=== PATIENT | male | born 1975 | race Caucasian/White ===

== ENCOUNTER 2016-07-01 13:46 | Emergency (ER) | payer MEDICAID ==
[2015-07-16 16:09] VITALS: BMI 25.1
[~2016-07-01 13:46] MED LIST: CELEXA40 MG PO; DIOVAN40 MG PO; HYDROCODONE-APA1 TAB PO; PERCOCET 10/3251 TA1 PO; REMERON30 MG PO; SYNTHROID50 MCG PO; TESSALON PERLE100 MG PO; VITAMIN D5000 UNIT PO
== END 2016-07-01 15:55 | disposition home or self-care (01) ==
LOC: D.ER 13:46
DX: M54.5 Low back pain (principal); E03.9 Hypothyroidism, unspecified; E78.5 Hyperlipidemia, unspecified; F32.9 Major depressive disorder, single episode, unspecified

== ENCOUNTER 2016-07-31 12:24 | Emergency (ER) | payer MEDICAID ==
[2015-07-16 16:09] VITALS: BMI 25.1
[2016-07-31 13:07] LABS: APPEARANCE CLEAR (CLEAR); BILIRUBIN NEGATIVE (NEGATIVE); COLOR YELLOW (YELLOW); GLUCOSE NEGATIVE (NEGATIVE); KETONE NEGATIVE (NEGATIVE); LEUKOCYTE ESTERASE NEGATIVE (NEGATIVE); NITRITE NEGATIVE (NEGATIVE); PROTEIN NEGATIVE (NEGATIVE); UROBILINOGEN NORMAL (NORMAL)
== END 2016-07-31 14:41 | disposition home or self-care (01) ==
LOC: D.ER 12:24
PROVIDERS: Emergency Medicine
DX: M54.16 Radiculopathy, lumbar region (principal); M51.36 Other intervertebral disc degeneration, lumbar region; E78.5 Hyperlipidemia, unspecified; I10 Essential (primary) hypertension; E03.9 Hypothyroidism, unspecified; F17.200 Nicotine dependence, unspecified, uncomplicated

== ENCOUNTER 2016-10-10 16:18 | Inpatient (IN) | payer SELFPAY ==
[2016-10-10] VITALS (17 sets, daily range): BP systolic 81–113; BP diastolic 47–94; BMI 21.1; BMI 25.2
[~2016-10-10] VITALS: Ht 185.4 cm; Wt 88.2 kg
[2016-10-10 17:22] LABS: BASOPHILS 0.3 % (0-2); EOSINOPHILS 2.1 % (0-7); HEMATOCRIT 42.3 % (42.0-54.0); HEMOGLOBIN 14.3 g/dL (13.5-17.5); IMMATURE GRANULOCYTES 0.1 % (0-5); MCH 29.5 pg (26.0-34.0); MCHC 33.8 g/dL (31.0-37.0); MCV 87.4 fL (80.0-100.0); MEAN PLATELET VOLUME 9.9 fL (7.4-10.4); MONOCYTES 9.3 % (2-11); NEUTROPHILS 46.2 % (40-80); PLATELET COUNT 257 10x3/uL (130-400); RBC 4.84 10x6/uL (4.20-6.10); RDW 14.4 % (11.5-14.5); WBC 6.8 10x3/uL (4.8-10.8)
[2016-10-10 17:30] LABS: UDS - AMPHET POSITIVE QUAL (NEGATIVE); UDS - BARB NEGATIVE QUAL (NEGATIVE); UDS - BENZO NEGATIVE QUAL (NEGATIVE); UDS - COCAINE NEGATIVE QUAL (NEGATIVE); UDS - METH NEGATIVE QUAL (NEGATIVE); UDS - OPIATE POSITIVE QUAL (NEGATIVE); UDS - PCP NEGATIVE QUAL (NEGATIVE); UDS - THC NEGATIVE QUAL (NEGATIVE)
[2016-10-10 17:39] LABS: ALBUMIN 3.7 g/dL (3.4-5.0); ANION GAP 19.8 mmol/L (8-16); BILIRUBIN - TOTAL 1.22 mg/dL (0.2-1.3); CALCIUM 7.8 mg/dL (8.5-10.1); CARBON DIOXIDE 19.3 mmol/L (21.0-32.0); CREATININE - SERUM 1.5 mg/dL (0.6-1.3); POTASSIUM - SERUM 4.1 mmol/L (3.5-5.1); PROTEIN - SERUM 6.6 g/dL (6.4-8.2)
[2016-10-10 18:00] LABS: ACETAMINOPHEN 730.3 ug/mL (10.0-30.0)
[2016-10-10 19:01] LABS: INR 1.05 (0.85-1.17); PROTIME 13.5 SECONDS (11.6-15.0)
--- NOTE | 2016-10-10 20:00 | NUR ---
RECIEVED FROM THE ED VIA STRETCHER. PLACED ON MONITORS. 8.0 ETT TAPED AT LIP LINE AT 25CM, VENT SETTINGS PER FLOW SHEET. OGT WITH CHARCOAL IN TUBING. MUIR CATH INTACT WITH WALLACE COLORED URINE IN BAG. PPP. SB ON THE MONITOR. DR. BUSTILLO NOTIFIED OF ARRIVAL. NEW ORDERS RECIEVED. WILL CONT TO MONITOR.
--- NOTE | 2016-10-10 20:30 | NUR ---
TEMP 91.2 RECTALLY. MUIR CATH REMOVED AND CRITICORE ATTEMPTED.
--- NOTE | 2016-10-10 20:40 | NUR ---
PT HAVING SEIZURE. ATIVAN 2MG IV GIVEN PER ORDERS. BOYFRIEND AT BEDSIDE. UPDATE GIVEN.
--- NOTE | 2016-10-10 20:57 | NUR ---
SPOKE WITH DR CANALES REGARDING NEED FOR MUIR CATH, UNABLE TO REPLACE MUIR WITH CRITICORE.
--- NOTE | 2016-10-10 21:30 | NUR ---
DR CANALES HERE, UNSUCCESSFUL WITH MUIR PLACEMENT. OR TEAM CALLED VIA [place] TECHNICIAN PER DR CANALES.
--- NOTE | 2016-10-10 22:10 | NUR ---
OR TEAM HERE. CYSTOSCOPY AT BEDSIDE COMPLETED AND CRITICORE PLACED. TEMP 92.7 PER CRITICORE.
--- NOTE | 2016-10-10 22:17 | NUR ---
DR BUSTILLO NOTIFIED OF PT HAVING SEIZURE. NEW ORDERS RECIEVED.
--- NOTE | 2016-10-10 22:26 | NUR ---
DR VENEGAS NOTIFIED OF CONSULT AND SEIZURES. NEW ORDERS RECIEVED.
[2016-10-10 22:48] LABS: ALBUMIN 3.5 g/dL (3.4-5.0); BILIRUBIN - TOTAL 1.19 mg/dL (0.2-1.3); CALCIUM 7.6 mg/dL (8.5-10.1); CARBON DIOXIDE 16.5 mmol/L (21.0-32.0); CREATININE - SERUM 1.6 mg/dL (0.6-1.3); POTASSIUM - SERUM 4.5 mmol/L (3.5-5.1); PROTEIN - SERUM 6.9 g/dL (6.4-8.2)
[2016-10-10 23:04] LABS: BILIRUBIN - DIRECT 0.24 mg/dL (0.00-0.30); MAGNESIUM - SERUM 2.1 mg/dL (1.8-2.4); PHOSPHOROUS 2.9 mg/dL (2.5-4.9)
[2016-10-11] VITALS (91 sets, daily range): BP systolic 91–128; BP diastolic 51–90; Ht 185.4 cm; Wt 88.2 kg
[2016-10-11 00:16] LABS: APPEARANCE HAZY (CLEAR); BILIRUBIN NEGATIVE (NEGATIVE); COLOR DK YELLOW (YELLOW); GLUCOSE NEGATIVE (NEGATIVE); KETONE NEGATIVE (NEGATIVE); LEUKOCYTE ESTERASE NEGATIVE (NEGATIVE); NITRITE NEGATIVE (NEGATIVE); PROTEIN TRACE mg/dL (NEGATIVE); UROBILINOGEN NORMAL (NORMAL)
[2016-10-11 00:26] LABS: AMORPHOUS SEDIMENT >1+ /lpf (NONE SEEN); BACTERIA MODERATE /hpf (NONE SEEN); EPITHELIAL CELLS 0-5 /hpf (0-5); GRANULAR CAST RARE /lpf (NONE SEEN); HYALINE CAST OCC /lpf (NONE SEEN); MUCUS <1+ /lpf (NONE SEEN); RED CELLS - URINE 0-5 /hpf (0-5); WHITE CELLS - URINE 0-5 /hpf (0-5)
--- NOTE | 2016-10-11 01:10 | NUR ---
DR VENEGAS NOTIFIED OF LAB PER ORDERS. NEW ORDERS RECIEVED. WILL CONT TO MONITOR.
[2016-10-11 04:31] LABS: BASOPHILS 0.1 % (0-2); EOSINOPHILS 0 % (0-7); HEMATOCRIT 42.5 % (42.0-54.0); HEMOGLOBIN 14.6 g/dL (13.5-17.5); IMMATURE GRANULOCYTES 0.3 % (0-5); MCH 29.5 pg (26.0-34.0); MCHC 34.4 g/dL (31.0-37.0); MCV 85.9 fL (80.0-100.0); MEAN PLATELET VOLUME 9.9 fL (7.4-10.4); MONOCYTES 10.1 % (2-11); NEUTROPHILS 65.5 % (40-80); PLATELET COUNT 299 10x3/uL (130-400); RBC 4.95 10x6/uL (4.20-6.10); RDW 14.1 % (11.5-14.5)
[2016-10-11 05:01] LABS: ALBUMIN 2.8 g/dL (3.4-5.0); BILIRUBIN - TOTAL 1.12 mg/dL (0.2-1.3); CARBON DIOXIDE 15.4 mmol/L (21.0-32.0); CREATININE - SERUM 1.4 mg/dL (0.6-1.3); PHENOBARBITAL 21.6 ug/mL (15.0-40.0); PROTEIN - SERUM 5.7 g/dL (6.4-8.2)
[2016-10-11 05:06] LABS: ANION GAP 22.8 mmol/L (8-16); PHOSPHOROUS 4.4 mg/dL (2.5-4.9); POTASSIUM - SERUM 3.2 mmol/L (3.5-5.1)
[2016-10-11 05:07] LABS: ACETAMINOPHEN 352.1 ug/mL (10.0-30.0); CALCIUM 6.6 mg/dL (8.5-10.1)
--- NOTE | 2016-10-11 08:03 | NUR ---
PT WAS INTUBATED AND IN ICU. CORE BODY TEMP NEEDED TO BE MONITORED PER CRITICORE CATHETER. PT HAD NO FAMILY IN ATTENDENCE AND WAS SEDATED. DR. CANALES DECLARED IT AN EMERGENCY WITHOUT A PERMIT AND A CYSTOSCOPY WAS PERFORMED IN ORDER TO PLACE THE CATHETER. ANESTHESIA, CAMERON LAM WAS IN ATTENDENCE BUT NO ANESTHETIC CARE WAS GIVEN.
--- NOTE | 2016-10-11 12:36 | OP ---
PATIENT NAME: MERON MARTIN MEDICAL RECORD: [id number] :71 LOCATION:[facility] D.2311 ADMISSION DATE:10/10/16 SURGEON: MARIA E CANALES MD DATE OF OPERATION: 10/10/2016 PREOPERATIVE DIAGNOSES: Drug overdose with amphetamines, acetaminophen and opioids; inability to be catheterized. FINDINGS: Urethral mucosal flaps. PROCEDURES: Cystoscopy, insertion of a Pinto catheter over a guidewire. SPECIMENS: None. COMPLICATIONS: None. ESTIMATED BLOOD LOSS: None. CLINICAL HISTORY: This is a 40-year-old male, who came to the Emergency Room and was found to have an overdose of acetaminophen, amphetamines and opioids by drug testing. He is now intubated and ventilated in the intensive care unit. He is hypothermic and bradycardic with a heart rate of around 30. He is on Levophed pressors. He is having witnessed seizures. In the Emergency Room, a Pinto catheter was placed; however, because of his hypothermia, the ICU staff need a catheter to be inserted with temperature sensing. They removed the Pinto catheter that was placed in the Emergency Room and they are unable to get another same-sized catheter, 16-Central African, into the patient. Therefore, they called urology assistance. I came in and I tried to get past the urethral obstruction with filiforms. I was unable to get past. Therefore, the OR staff were called in for cystoscopy and placement of a catheter over a guidewire. Because of his intubated and ventilated state as well as being on pressors, we decided to do this at the patient's bedside. The equipment was brought from the cystoscopy suite and the procedure was done in the ICU. The patient is unconscious, so no further anesthetics were given to the patient. DESCRIPTION OF PROCEDURE: The patient was prepped and draped. A flexible cystoscope was used. Going into the urethra, we noticed that there was a mucosal flap from the prior catheterization being traumatic. There is no urethral stricture. Prostate is nonobstructive. Going into the bladder, he has single ureteral orifices. No bladder tumors were seen. A Sensor wire was placed into the bladder through the cystoscope. The cystoscope was then removed and the Sensor wire was left in place. Over the wire, we inserted the temperature-sensing Pinto catheter after converting it into a Councill tip catheter. Once the catheter was in the bladder as evidenced by the catheter reaching the hub at the tip of the penis and also by urinary drainage, the wire was entirely removed. The balloon was inflated with 10 cc of sterile water and then the catheter was put to bag drainage. TRANSINT:[id number] Voice Confirmation ID: [id number] DOCUMENT ID: [id number] OPERATIVE REPORT [id number] MERON MARTIN, MARIA E Eng MD at 1236 CC: [id number] DICTATION DATE: 10/10/162303 OCCUPATIONAL THERAPY PROGRAM DIRECTOR: 10/10/16 2348 ADM IN [facility] [address] [id number]
--- NOTE | 2016-10-11 14:10 | NUR ---
DR. ADAMS PLACED DOUBLE LUMEN CVL TO LEFT SUBCLAVIALN, NO NOTED BLOOD LOSS, CHEST X-RAY ORDERED POST PROCEDURE.
[2016-10-11 17:03] LABS: HEMATOCRIT 43.4 % (42.0-54.0); HEMOGLOBIN 14.9 g/dL (13.5-17.5)
--- NOTE | 2016-10-11 18:03 | NUR ---
MUCOMYST PROTOCOL IV COMPLETED. KCL 2.9 SEE EMAR FOR KCL INFUSION PER PROTOCOL
--- NOTE | 2016-10-11 19:10 | NUR ---
ASSESSMENT COMPLETED. SEE FLOW SHEET. 8.0 ETT TAPED AT LIP LINE @ 25CM, VENT SETTINGS PER FLOW SHEET. LT DLSC, DRSG C-D-I WITH NS @ 75CC/HR VIA PUMP, LEVOPHED @ 25MCG/KG/MIN VIA PUMP, TITRATING FOR BP, DIPRIVAN @ 17MCG/KG/MIN VIA PUMP AND KCL RIDER AT 50CC/HR VIA PUMP. RT UPPER ARM PIV, SITE WITHOUT REDNESS OR EDEMA WITH 1/2NS WITH 1 AMP NaHCO3 @ 75CC/HR VIA PUMP. CRITICORE MUIR INTACT WITH DARK COLORED URINE IN BAG. MAGAN SCD'S INTACT. ON AIR OVERLAY. SR ON THE MONITOR.
--- NOTE | 2016-10-11 21:00 | NUR ---
DIPRIVAN ON HOLD AT THIS TIME FOR NEURO CHECK. CALLED POISON CONTROL FOR UPDATE.
--- NOTE | 2016-10-11 21:05 | NUR ---
PT SITTING UP IN BED. DIPRIVAN RESUMED. WILL CONT TO MONITOR.
--- NOTE | 2016-10-11 21:25 | NUR ---
TYRELL CALLED. UPDATE GIVEN.
[2016-10-11 21:26] LABS: APTT 29.5 SECONDS (22.8-39.4)
[2016-10-11 21:29] LABS: INR 1.34 (0.85-1.17); PROTIME 16.4 SECONDS (11.6-15.0)
--- NOTE | 2016-10-11 21:30 | NUR ---
POISON CONTROL CALLED, UPDATE GIVEN. NEW RECOMENDATIONS GIVEN. CONTACTED DR POLK. NEW ORDERS RECIEVED. PHARMACY NOTIFIED OF NEED FOR MUCOMYST IV. Y
[2016-10-11 21:40] LABS: ALBUMIN 2.7 g/dL (3.4-5.0); BILIRUBIN - DIRECT 0.57 mg/dL (0.00-0.30); BILIRUBIN - INDIRECT 0.62 mg/dL (0.00-1.00); BILIRUBIN - TOTAL 1.19 mg/dL (0.2-1.3); PROTEIN - SERUM 5.4 g/dL (6.4-8.2)
[2016-10-11 21:42] LABS: ACETAMINOPHEN 82.5 ug/mL (10.0-30.0)
--- NOTE | 2016-10-11 23:00 | NUR ---
NO CHANGES AT THIS TIME. CONTINUE TO WEAN LEVOPHED PER BP
[2016-10-12] VITALS (43 sets, daily range): BP systolic 86–115; BP diastolic 57–633
--- NOTE | 2016-10-12 01:00 | NUR ---
SR ON THE MONITOR.
--- NOTE | 2016-10-12 03:00 | NUR ---
REASSESSMNET COMPLETED.
--- NOTE | 2016-10-12 03:45 | NUR ---
RADIOLOGY HERE FOR CXR. TOLLERATED WELL.
[2016-10-12 04:27] LABS: BASOPHILS 0.2 % (0-2); EOSINOPHILS 0.4 % (0-7); HEMATOCRIT 40.3 % (42.0-54.0); HEMOGLOBIN 13.8 g/dL (13.5-17.5); IMMATURE GRANULOCYTES 0.2 % (0-5); LYMPHOCYTES 17.6 % (15-50); MCH 29.2 pg (26.0-34.0); MCHC 34.2 g/dL (31.0-37.0); MCV 85.4 fL (80.0-100.0); MEAN PLATELET VOLUME 10.1 fL (7.4-10.4); MONOCYTES 2.4 % (2-11); NEUTROPHILS 79.2 % (40-80); RBC 4.72 10x6/uL (4.20-6.10); RDW 14.2 % (11.5-14.5); WBC 8.2 10x3/uL (4.8-10.8)
[2016-10-12 04:33] LABS: INR 1.51 (0.85-1.17); PLATELET COUNT 195 10x3/uL (130-400)
[2016-10-12 04:37] LABS: ALBUMIN 2.5 g/dL (3.4-5.0); ALKALINE PHOSPHATASE 42 U/L (46-116); ALT (SGPT) 204 U/L (10-68); CALC OSMOLALITY 284 mosm/kg (275-300); CHLORIDE - SERUM 107 mmol/L (98-107); CREATININE - SERUM 0.7 mg/dL (0.6-1.3); GLUCOSE 125 mg/dL (74-106); MAGNESIUM - SERUM 2.1 mg/dL (1.8-2.4); PHOSPHOROUS 2.2 mg/dL (2.5-4.9); PROTEIN - SERUM 5.1 g/dL (6.4-8.2); SODIUM 142 mmol/L (136-145); UREA NITROGEN 15 mg/dL (7-18); eGFR NON AFRICAN AMERICAN > 90 mL/min (90-120)
[2016-10-12 04:38] LABS: CARBON DIOXIDE 26.6 mmol/L (21.0-32.0); POTASSIUM - SERUM 2.5 mmol/L (3.5-5.1); TROPONIN-I < 0.017 ng/mL (0.000-0.060)
--- NOTE | 2016-10-12 05:00 | NUR ---
DIPRIVAN HELD FOR 2 MIN THEN RESTARTED AFTER PT COUGHING AND SITTING UP IN BED.
--- NOTE | 2016-10-12 07:00 | NUR ---
PT REPORT REC'D, PT CARE ASSUMED. PT SEDATED ON VENT, VSS, NO SIGNS OF DISTRESS. OGT TO LIWS. LEFT SUBCLAVIAN CVL WITH FLUIDS INFUSING, SEE FLOW SHEET. MUIR CATHETER FREE OF KINKS TO GRAVITY WITH DARK URINE RETURN. SCD'S. SHIFT ASSESSMENT COMPLETED, SEE FLOW SHEET. ROOM FREE OF CLUTTER, CALL LIGHT IN REACH, ROOM CLOSE TO NURSES STATION, WILL CONTINUE TO MONITOR PT.
--- NOTE | 2016-10-12 07:23 | OP ---
PATIENT NAME: MERON MARTIN MEDICAL RECORD: [id number] :71 LOCATION:[facility] D.2311 ADMISSION DATE:10/10/16 SURGEON: DAYNA ADAMS MD DATE OF OPERATION: 10/11/2016 SURGEON: Dayna Adams MD. PREOPERATIVE DIAGNOSIS: Intentional drug overdose. POSTOPERATIVE DIAGNOSIS: Intentional drug overdose. PROCEDURE PERFORMED: Insertion of left subclavian CVL. ANESTHESIA: Local. COMPLICATIONS: None. SPECIMENS: None. Case was clean. ESTIMATED BLOOD LOSS: 5 cc. PROCEDURE IN DETAIL: After consent was obtained, the patient was placed in supine position in the ICU bed. A shoulder roll was placed. A timeout was taken to confirm the correct patient and procedure. Left chest and neck were prepped and draped in typical sterile fashion. Left subclavian vein was then cannulated on the first pass. A guidewire was placed. The needle was removed. Wire was placed. A stab incision was made with 11-blade scalpel. The dilators passed in the wire in a standard Seldinger fashion. The catheter was then passed through the wire in a standard Seldinger fashion. The wire was removed. The catheter was secured to the skin with a 2-0 silk suture as well as a Biopatch and sterile Tegaderm dressing. Both ports were aspirated and flushed. At the end of the procedure, all needle and instrument counts were correct. No complications occurred. The patient tolerated the procedure well. Immediate postoperative chest x-ray was performed to confirm the line placement. TRANSINT:[id number] Voice Confirmation ID: [id number] DOCUMENT ID: [id number] DAYNA ADAMS MD at 0723 CC: [id number] DICTATION DATE: 10/11/16 1510 SANDING MACHINE BUFFER: 10/12/16 0109 ADM IN [id number] [place] [id number]
--- NOTE | 2016-10-12 11:00 | NUR ---
PT SEDATED, REPOSITIONED, PROPPED PT WITH PILLOWS, VSS, REASSESSMENT COMPLETED, SEE FLOW SHEET. ROOM FREE OF CLUTTER, CALL LIGHT IN REACH, WILL CONTINUE TO MONITOR PT.
--- NOTE | 2016-10-12 12:40 | NUR ---
REC'D REPORT AND RESUMED CARE, CONTINUES ON VENT WITH SEDATION IN USE, VSS, WILL CONTINUE POC
--- NOTE | 2016-10-12 14:10 | NUR ---
REPEAT K+ AND AETAMINIPHINE LEVEL DRAWN FROM LINE AND SENT TO LAB
[2016-10-12 14:42] LABS: ACETAMINOPHEN 22.3 ug/mL (10.0-30.0)
[2016-10-12 14:52] LABS: POTASSIUM - SERUM 3.1 mmol/L (3.5-5.1)
--- NOTE | 2016-10-12 15:00 | NUR ---
NO ACUTE CHANGE FROM PREVIOUS ASSESSMENT VSS, ORAL CARE AND SUCTION COMPLETED, REPOSITIONED TO BACK
--- NOTE | 2016-10-12 18:10 | NUR ---
KCL 20 MEQ RIDER 2ND DOSE INTIIATED, NO VISITORES AT THIS TIME
--- NOTE | 2016-10-12 19:10 | NUR ---
REPORT RECIEVED, SHIFT ASSESSMENT COMPLETE, PT IS SEDATED ON VENT, S1S2, CM-NSR, PATENT OGT WITH DARK BROWN DRAINAGE, PLACEMENT CHECKED WITH SM AIR BOLUS, PATENT LEFT SC CVL...SEE FLOW SHEET...ABDOMEN IS SOFT AND ROUND WITH ACTIVE BS, PATENT F/C WITH DARK UOP, EDEMA NOTED IN ALL EXTREMETIES, LUNGS CLEAR IN B/L UPPER LOBES, DIMINISHED IN B/L LOWER LBOES, ALL PPP, VSS, WILL CON'T TO MONITOR
--- NOTE | 2016-10-12 21:00 | NUR ---
COMPLETE BATH AND LINEN CHANGE, REPOSITIONED FOR COMFORT, ORAL CARE PROVIDED,
--- NOTE | 2016-10-12 23:00 | NUR ---
REASSESSMENT COMPLETE, NO CHANGES NOTED, PT REPOSITIONED FOR COMFORT, ORAL CARE PROVIDED,
[2016-10-13] VITALS (24 sets, daily range): BP systolic 107–127; BP diastolic 60–74
--- NOTE | 2016-10-13 01:00 | NUR ---
REPOSITIONED FOR COMFORT, ORAL CARE PROVIDED,
--- NOTE | 2016-10-13 03:00 | NUR ---
REASSESSMENT COMPLETE, NO CHANGES NOTED, PT RESTING AT THIS TIME, REPOSITIONED FOR COMFORT, ORAL CARE PROVIDED,
[2016-10-13 04:03] LABS: BASOPHILS 0.1 % (0-2); EOSINOPHILS 0.1 % (0-7); HEMATOCRIT 36.5 % (42.0-54.0); HEMOGLOBIN 12.5 g/dL (13.5-17.5); IMMATURE GRANULOCYTES 0.2 % (0-5); MCH 29.5 pg (26.0-34.0); MCHC 34.2 g/dL (31.0-37.0); MCV 86.1 fL (80.0-100.0); MEAN PLATELET VOLUME 10.3 fL (7.4-10.4); NEUTROPHILS 87.6 % (40-80); PLATELET COUNT 138 10x3/uL (130-400); RBC 4.24 10x6/uL (4.20-6.10); RDW 14.6 % (11.5-14.5); WBC 10.3 10x3/uL (4.8-10.8)
[2016-10-13 04:30] LABS: ALBUMIN 2.4 g/dL (3.4-5.0); ALKALINE PHOSPHATASE 40 U/L (46-116); BILIRUBIN - TOTAL 1.14 mg/dL (0.2-1.3); CALCIUM 7.1 mg/dL (8.5-10.1); CARBON DIOXIDE 27.5 mmol/L (21.0-32.0); CHLORIDE - SERUM 106 mmol/L (98-107); CREATININE - SERUM 0.7 mg/dL (0.6-1.3); GLUCOSE 123 mg/dL (74-106); MAGNESIUM - SERUM 1.8 mg/dL (1.8-2.4); PHENOBARBITAL 27.7 ug/mL (15.0-40.0); POTASSIUM - SERUM 3.2 mmol/L (3.5-5.1); PROTEIN - SERUM 4.7 g/dL (6.4-8.2); SODIUM 142 mmol/L (136-145); eGFR NON AFRICAN AMERICAN > 90 mL/min (90-120)
[2016-10-13 04:42] LABS: ALT (SGPT) 6856 U/L (10-68); CALC OSMOLALITY 280 mosm/kg (275-300); PHOSPHOROUS 1.5 mg/dL (2.5-4.9); UREA NITROGEN 5 mg/dL (7-18)
--- NOTE | 2016-10-13 11:06 | NUR ---
NUTRITION MONITORING & EVAL CHART REVIEWED, PT REMAINS ON VENT, SEDATED. NO CURRENT NUTRITION SUPPORT. NURSING REPORTS UGI BLEED. RD FOLLOWING
--- NOTE | 2016-10-13 12:15 | NUR ---
CM REASSESSMENT NOTE: CM CALLED [facility] REGARDING TRANSFER OF PATIENT PER DR. WHITE REQUEST. CM SPOKE WITH JAKI AND PROVIDED THE NEEDED INFORMATION. MD WILL CALL DR. WHITE BACK FOR MORE INFORMATION. PHONE NUMBER FOR DR. WHITE PROVIDED.
--- NOTE | 2016-10-13 12:53 | NUR ---
CM REASSESSMENT NOTE: CM REC CALL FROM [facility] STATING THEY COULD NOT GET AN ANSWER FROM DR. WHITE AND WILL TRY AGAIN BUT TO NOTIFY HIM OF THE CALL. CM WILL CONTINUE TO FOLLOW PATIENT WITH D/C NEEDS AND PLANS.
--- NOTE | 2016-10-13 15:00 | NUR ---
WEDDING RING AND BLUE RING GIVEN TO MALE .
[2016-10-13 16:09] LABS: INR 1.41 (0.85-1.17); PROTIME 17.1 SECONDS (11.6-15.0)
--- NOTE | 2016-10-13 19:15 | NUR ---
REPORT RECIEVED, SHIFT ASSESSMENT COMPLETE, PT IS SEDATED ON VENT, ON 30% FIO2 WITH 97% O2 SAT. CRACKLES HEARD IN B/L UPPER LOBES, DIMINISHED IN B/L LOWER LOBES, S1S2, CM-NSR, PATENT LEFT SC CVL...SEE FLOW SHEET..PATENT OGT WITH BROWN DRAINAGE NOTED, ABDOMEN IS SOFT AND ROUND WITH HYPO BS, PATENT F/C WITH DARK UOP, EDEMA NOTED IN ALL EXTREMETIES, ALL PPP, VSS, WILL CON'T TO MONITOR
--- NOTE | 2016-10-13 21:00 | NUR ---
NO VISITORS AT THIS TIME, WILL CON'T TO MONITOR
--- NOTE | 2016-10-13 22:10 | NUR ---
[facility]ANDA CONTROL CALLED. GIVEN UPDATE. NO NEW CHANGES.
--- NOTE | 2016-10-13 23:14 | NUR ---
REASSESSMENT COMPLETE PER FLOW SHEET. VSS. NO NEW CHANGES. WILL CONTINUE TO MONITOR.
[2016-10-14] VITALS (37 sets, daily range): BP systolic 101–132; BP diastolic 53–88
--- NOTE | 2016-10-14 01:10 | NUR ---
REPOSITIONED FOR COMFORT, ORAL CARE PROVIDED,
--- NOTE | 2016-10-14 03:00 | NUR ---
REASSESSMENT COMPLETE, NO CHANGES NOTED, PT RESTING AT THIS TIME, NO NEEDS NOTED, WILL CON'T TO MONITOR
[2016-10-14 04:05] LABS: BASOPHILS 0.2 % (0-2); EOSINOPHILS 1.3 % (0-7); HEMATOCRIT 33.1 % (42.0-54.0); IMMATURE GRANULOCYTES 0.1 % (0-5); MCH 29.1 pg (26.0-34.0); MCHC 33.2 g/dL (31.0-37.0); MCV 87.6 fL (80.0-100.0); MEAN PLATELET VOLUME 10.4 fL (7.4-10.4); MONOCYTES 2.8 % (2-11); NEUTROPHILS 85.6 % (40-80); PLATELET COUNT 134 10x3/uL (130-400); RBC 3.78 10x6/uL (4.20-6.10); RDW 14.4 % (11.5-14.5); WBC 9.6 10x3/uL (4.8-10.8)
[2016-10-14 04:29] LABS: INR 1.26 (0.85-1.17); PROTIME 15.7 SECONDS (11.6-15.0)
[2016-10-14 04:42] LABS: ACETAMINOPHEN 1.7 ug/mL (10.0-30.0); ALBUMIN 2.2 g/dL (3.4-5.0); ALKALINE PHOSPHATASE 40 U/L (46-116); BILIRUBIN - DIRECT 0.58 mg/dL (0.00-0.30); BILIRUBIN - TOTAL 1.53 mg/dL (0.2-1.3); CALC OSMOLALITY 281 mosm/kg (275-300); CALCIUM 7.7 mg/dL (8.5-10.1); CARBON DIOXIDE 24.4 mmol/L (21.0-32.0); CHLORIDE - SERUM 107 mmol/L (98-107); CREATININE - SERUM 0.7 mg/dL (0.6-1.3); GLUCOSE 126 mg/dL (74-106); POTASSIUM - SERUM 3.2 mmol/L (3.5-5.1); PROTEIN - SERUM 5.2 g/dL (6.4-8.2); SODIUM 142 mmol/L (136-145); UREA NITROGEN 4 mg/dL (7-18); eGFR NON AFRICAN AMERICAN > 90 mL/min (90-120)
--- NOTE | 2016-10-14 05:00 | NUR ---
REPOSITIONED FOR COMFORT, ORAL CARE PROVIDED
[2016-10-14 05:48] LABS: ALT (SGPT) 5175 U/L (10-68)
--- NOTE | 2016-10-14 10:27 | NUR ---
Nutrition follow-up/consult for tube feeding: Pt remains intubated; weaning trial today. Labs reviewed Recommend starting Suplena @ 25 ml/hr with gradual increase to goal rate of 55 ml/hr. 2376 kcal 60 g protein 975 ml free H2O RDN following.
--- NOTE | 2016-10-14 19:15 | NUR ---
REPORT RECIEVED, SHIFT ASSESSMENT COMPLETE, PT IS SEDATED ON VENT, ON 30% FIO2 WITH 97% O2 SAT. CRACKLES HEARD INB/L UPPER LOBES, DIMINISHED IN B/L LOWER LOBES, S1S2, CM-NSR, PATENT OGT WITH SUPPLENA INFUSING VIA PUMP, NO RESIDUAL NOTED, ABDOMEN IS DISTENDED WITH HYPO BS, PATENT LEFT SC CVL..SEE FLOW SHEET....PATENT F/C WITH CONCENTRATED UOP, EDEMA NOTED IN ALL EXTREMETIES, ALL PPP, VSS, WILL CON'T TO MONITOR
--- NOTE | 2016-10-14 21:15 | NUR ---
COMPLETE BATH AND LINEN CHANGE, NO VISITORS AT THIS TIME,
--- NOTE | 2016-10-14 23:03 | NUR ---
REASSESSMENT COMPLETE, NO CHANGES NOTED, PT REPOSITIONED FOR COMFORT, ORAL CARE PROVIDED,
[2016-10-15] VITALS (24 sets, daily range): BP systolic 91–166; BP diastolic 48–85
--- NOTE | 2016-10-15 01:00 | NUR ---
REPOSITIONED FOR COMFORT, ORAL CARE PROVIDED,
--- NOTE | 2016-10-15 03:04 | NUR ---
REASSESSMENT COMPLETE, NO CHANGES NOTED, PT REPOSITIONED FOR COMFORT, ORAL CARE PROVIDED,
[2016-10-15 03:34] LABS: BASOPHILS 0.5 % (0-2); EOSINOPHILS 3.2 % (0-7); HEMATOCRIT 30.2 % (42.0-54.0); HEMOGLOBIN 9.9 g/dL (13.5-17.5); IMMATURE GRANULOCYTES 0.2 % (0-5); LYMPHOCYTES 15.5 % (15-50); MCH 29.1 pg (26.0-34.0); MCHC 32.8 g/dL (31.0-37.0); MCV 88.8 fL (80.0-100.0); MEAN PLATELET VOLUME 10.4 fL (7.4-10.4); MONOCYTES 5.6 % (2-11); PLATELET COUNT 128 10x3/uL (130-400); RDW 14.7 % (11.5-14.5); WBC 5.9 10x3/uL (4.8-10.8)
[2016-10-15 03:58] LABS: ALBUMIN 2.3 g/dL (3.4-5.0); ALKALINE PHOSPHATASE 53 U/L (46-116); BILIRUBIN - TOTAL 0.71 mg/dL (0.2-1.3); CALCIUM 8.3 mg/dL (8.5-10.1); CARBON DIOXIDE 28.7 mmol/L (21.0-32.0); CHLORIDE - SERUM 107 mmol/L (98-107); CREATININE - SERUM 0.6 mg/dL (0.6-1.3); GLUCOSE 126 mg/dL (74-106); MAGNESIUM - SERUM 2.2 mg/dL (1.8-2.4); POTASSIUM - SERUM 3.3 mmol/L (3.5-5.1); PROTEIN - SERUM 5.6 g/dL (6.4-8.2); SODIUM 141 mmol/L (136-145); eGFR NON AFRICAN AMERICAN > 90 mL/min (90-120)
[2016-10-15 04:02] LABS: ALT (SGPT) 2690 U/L (10-68); CALC OSMOLALITY 280 mosm/kg (275-300); UREA NITROGEN 7 mg/dL (7-18)
--- NOTE | 2016-10-15 16:36 | EC ---
PATIENT:MERON MARTIN DATE OF SERVICE: 10/10/16 SEX: M MEDICAL RECORD: [id number] DATE OF : 71 LOCATION:[place] [address] AGE OF PATIENT: 40 ADMISSION DATE: 10/10/16 REFERRING PHYSICIAN: INTERPRETING PHYSICIAN: DEVAN PIERCE MD ECHOCARDIOGRAM REPORT ECHO CHARGES 4 ECHO COMPLETE CLINICAL DIAGNOSIS: HYPOTENSION ECHOCARDIOGRAPHIC MEASUREMENTS (adult normal given) AC root (d.<3.7cm) 2.4 LV Septum d (<1.2 cm> 1.2 Valve Excursion 1.4 LV Septum (systole) 1.6 Left Atria (s.<4.0cm> 3.3 LVPW d(<1.2cm) 1.4 RV (d.<2.3cm) 4.3 LVPW (sytole) 1.5 LV diastole(<5.6CM) 5.2 MV E-F(>70mm/sec) LV systole 3.5 LVOT Diameter 2.0 MV exc.(>10mm) 2.2 Est.ejection fraction (50-75%) Pericardial Effusion N DOPPLER: LVIT A 89.0 E 78.0 LA RVSP 18 LVOT 103 AOP1/2T Asc. Ao 140 RVOT RA PA AV Gradient Peak 7.80 AV Mean 3.85 AV Area 1.8 MV Gradient Peak 5.20 MV Mean 1.94 MV Area COMMENTS: Media Relations Associate: Trish STRATTON Brake Tester:Trish Hull TAPE# PACS DATE OF SERVICE: 10/12/2016 Echocardiogram FINDINGS: 1. Left ventricular chamber size is within normal limits. Left ventricular systolic function is normal. Overall ejection fraction estimated at 55%. 2. Left atrium, right atrium, and right ventricular chamber sizes are within normal limits. 3. Valvular structures have normal structure and motion. ECHOCARDIOGRAM REPORT [id number] MERON MARTIN 4. Doppler interrogation only reveals trace to mild tricuspid regurgitation, no other valvular insufficiency or stenosis. 5. No evidence of pericardial effusion or left ventricular thrombus. TRANSINT:[id number] Voice Confirmation ID: [id number] DOCUMENT ID: [id number] DEVAN PIERCE MD at 9726 CC: [id number] DICTATION DATE: 10/12/16 1655 BOILER TUBE REAMER: 10/13/16 0912 ADM IN [facility] [address] [id number]
--- NOTE | 2016-10-15 17:13 | NUR ---
0715 ASSESSMENT COMPLETE PER FLOWSHEET. DIPRAVAN OFF AT TIME TO WEAN.
--- NOTE | 2016-10-15 17:16 | NUR ---
1100 BATH GIVEN LINENS CHANGED. MOUTHCARE DONE. 1300 DIPRAVAN CONTINUE TO BE OFF. PT GAGGING AND COUGHING FROM ETT. DIPRAVAN BACK ON. 1500 AT THE BEDSIDE. QUESTIONS ASKED AND ANSWERED. INSTRUCT PT NOT RESPONDING APPROPRIATE TO VERBAL STIMULI, PAINFUL STIMULI ECT. WILL CONT TO MONITOR. 1700 DIPRAVAN CONT. PT RESTING COMFORTABLE.
--- NOTE | 2016-10-15 19:15 | NUR ---
RECEIVED CARE OF PT, ASSESSMENT PER FLOWSHEET. PT INTUBATED AND SEDATED, ON 30% FIO2 VIA VENT, OGT WITH SUPLENA INFUSING AT 35 CC/HR, RESIDUAL 30, INCREASED TO 45 CC/HR, PLACEMENT VERIFIED WITH SMALL AIR BOLUS, PPP, HR SR ON CM, CRITICORE MUIR PATENT WITH GREEN URINE IN TUBING. LT DL SC PATENT, GTT'S PER FLOWSHEET, WILL MONITOR.
[2016-10-15 19:40] LABS: HEMATOCRIT 28.6 % (42.0-54.0); HEMOGLOBIN 9.4 g/dL (13.5-17.5)
--- NOTE | 2016-10-15 21:00 | NUR ---
NO VISITORS PRESENT AT THIS TIME, PT REPOSITIONED FOR COMFORT, ORAL CARE AND SUCTIONING PROVIDED.
--- NOTE | 2016-10-15 23:15 | NUR ---
REASSESSMENT PER FLOWSHEET, NO ACUTE CHANGES NOTED. PT POSITIONED FOR COMFORT, ORAL CARE PROVIDED, COUGH NOTED WITH SUCTIONING, VSS.
[2016-10-16] VITALS (36 sets, daily range): BP systolic 101–139; BP diastolic 64–111
--- NOTE | 2016-10-16 01:00 | NUR ---
PT REPOSITIONED FOR COMFORT, ORAL CARE AND SUCTIONING PROVIDED, VSS, CONT POC.
--- NOTE | 2016-10-16 03:30 | NUR ---
AM LAB DRAWN FROM LT SC, DRAWS AND FLUSHES EASILY, SENT OVER PER ORDERS.
[2016-10-16 03:52] LABS: BASOPHILS 0.5 % (0-2); EOSINOPHILS 4.4 % (0-7); HEMATOCRIT 29.9 % (42.0-54.0); HEMOGLOBIN 9.7 g/dL (13.5-17.5); IMMATURE GRANULOCYTES 0.5 % (0-5); LYMPHOCYTES 28.7 % (15-50); MCH 29.4 pg (26.0-34.0); MCHC 32.4 g/dL (31.0-37.0); MCV 90.6 fL (80.0-100.0); MEAN PLATELET VOLUME 10.3 fL (7.4-10.4); MONOCYTES 14.7 % (2-11); NEUTROPHILS 51.2 % (40-80); PLATELET COUNT 161 10x3/uL (130-400); WBC 4.3 10x3/uL (4.8-10.8)
[2016-10-16 04:13] LABS: ALBUMIN 2.4 g/dL (3.4-5.0); ALKALINE PHOSPHATASE 58 U/L (46-116); CALCIUM 8.4 mg/dL (8.5-10.1); CARBON DIOXIDE 29.7 mmol/L (21.0-32.0); CHLORIDE - SERUM 108 mmol/L (98-107); CREATININE - SERUM 0.7 mg/dL (0.6-1.3); GLUCOSE 128 mg/dL (74-106); MAGNESIUM - SERUM 2.1 mg/dL (1.8-2.4); POTASSIUM - SERUM 3.3 mmol/L (3.5-5.1); PROTEIN - SERUM 5.8 g/dL (6.4-8.2); SODIUM 142 mmol/L (136-145); eGFR NON AFRICAN AMERICAN > 90 mL/min (90-120)
[2016-10-16 04:14] LABS: ALT (SGPT) 1736 U/L (10-68); CALC OSMOLALITY 283 mosm/kg (275-300); UREA NITROGEN 9 mg/dL (7-18)
[2016-10-16 04:18] LABS: INR 1.03 (0.85-1.17); PROTIME 13.4 SECONDS (11.6-15.0)
--- NOTE | 2016-10-16 05:22 | NUR ---
40 MEQ KCL ADMINISTERED PT PER MD ORDER TO TREAT K+ OF 3.3 ON AM LAB
--- NOTE | 2016-10-16 06:15 | NUR ---
DR VENEGAS IN TO SEE PT, UPDATE GIVEN, ORDERS RECEIVED.
--- NOTE | 2016-10-16 06:44 | NUR ---
PT COUGHING/GAGGING ON ETT, KICKING LEGS AND ATTEMPTING TO SIT UP IN BED. DIPRIVAN GTT RESTARTED AT 20 MCG/KG/MIN, WILL MONITOR CLOSELY.
--- NOTE | 2016-10-16 07:46 | NUR ---
CHANGED VENTILATOR TO CPAP 03/10 @ 0730 TO EXERCISE THE PATIENT PER DR. VITALE VERBAL ORDER.
--- NOTE | 2016-10-16 11:00 | NUR ---
NO CHANGES NOTED
--- NOTE | 2016-10-16 15:00 | NUR ---
NO CHANGE NOTED
--- NOTE | 2016-10-16 19:15 | NUR ---
RESUMED CARE OF PT, ASSESSMENT PER FLOWSHEET. PT INTUBATED AND SEDATED ON VENT, SIMV SETTING 30% FIO2, CRITICORE MUIR PATENT, HR SR ON CM, CRACKLES ASUCULTATED BILATERLLY WITH DIMINISHED BASES, PPP, SUPLENA INFUSING VIA OGT AT 55 CC/HR, PLACMENT VERIFIED WITH SMALL AIR BOLUS, RESIDUAL 40 CC NOTED. PT REPOSITIONED FOR COMFORT, ORAL CARE PROVIDED, VSS.
--- NOTE | 2016-10-16 21:05 | NUR ---
NO VISITORS PRESENT AT THIS TIME, PT POSITIONED FOR COMFORT, ORAL CARE AND SUCTIONING PROVIDED, THICK YELLOW SECRETIONS NOTED. VSS
--- NOTE | 2016-10-16 23:00 | NUR ---
REASSESSMENT PER FLOWSHEET, NO ACUTE CHANGES NOTED, CONT TO MONITOR.
[2016-10-17] VITALS (27 sets, daily range): BP systolic 101–158; BP diastolic 55–96
--- NOTE | 2016-10-17 03:00 | NUR ---
REASSESSMENT PER FLOWSHEET, NO ACUTE CHANGES NOTED. ORAL CARE AND SUCTIONING PROVIDED, POSITIONED FOR COMFORT. VSS
[2016-10-17 03:47] LABS: BASOPHILS 0.2 % (0-2); EOSINOPHILS 4.1 % (0-7); HEMATOCRIT 29.3 % (42.0-54.0); HEMOGLOBIN 9.4 g/dL (13.5-17.5); LYMPHOCYTES 25.3 % (15-50); MCH 29.1 pg (26.0-34.0); MCHC 32.1 g/dL (31.0-37.0); MCV 90.7 fL (80.0-100.0); MEAN PLATELET VOLUME 9.7 fL (7.4-10.4); MONOCYTES 13.6 % (2-11); NEUTROPHILS 55.8 % (40-80); PLATELET COUNT 180 10x3/uL (130-400); RBC 3.23 10x6/uL (4.20-6.10); RDW 14.7 % (11.5-14.5); WBC 4.9 10x3/uL (4.8-10.8)
[2016-10-17 04:07] LABS: ALBUMIN 2.4 g/dL (3.4-5.0); ALKALINE PHOSPHATASE 62 U/L (46-116); BILIRUBIN - TOTAL 0.29 mg/dL (0.2-1.3); CALC OSMOLALITY 280 mosm/kg (275-300); CALCIUM 8.5 mg/dL (8.5-10.1); CARBON DIOXIDE 30.2 mmol/L (21.0-32.0); CHLORIDE - SERUM 106 mmol/L (98-107); CREATININE - SERUM 0.6 mg/dL (0.6-1.3); GLUCOSE 136 mg/dL (74-106); MAGNESIUM - SERUM 1.9 mg/dL (1.8-2.4); POTASSIUM - SERUM 3.8 mmol/L (3.5-5.1); PROTEIN - SERUM 5.8 g/dL (6.4-8.2); SODIUM 141 mmol/L (136-145); UREA NITROGEN 7 mg/dL (7-18); eGFR NON AFRICAN AMERICAN > 90 mL/min (90-120)
[2016-10-17 04:08] LABS: ALT (SGPT) 1122 U/L (10-68)
--- NOTE | 2016-10-17 05:02 | NUR ---
AM LABS REVIEWED, NOTHING TO TREAT PER ELECTROLYTE PROTOCOL.
--- NOTE | 2016-10-17 08:03 | NUR ---
CHANGED VENTILATOR TO CPAP 03/[address] VITALE VERBAL ORDER.
--- NOTE | 2016-10-17 08:55 | NUR ---
REMOVED FROM ISOLATION PER INSTRUCTION FROM MASSIEL IN LAB
--- NOTE | 2016-10-17 11:00 | NUR ---
NO CHANGE NOTED
--- NOTE | 2016-10-17 15:00 | NUR ---
NO CHANGE NOTED
--- NOTE | 2016-10-17 19:15 | NUR ---
RESUMED CARE OF PT, ASSESSMENT PER FLOWSHEET. PT INTUBATED AND SEDATED ON VENT, SIMV SETTING 40 % FIO2, HR SR ON CM, CRACKLES AUSCULTATED BILATERALLY WITH DIM BASES, PPP, CRITICORE MUIR PATENT, GTT'S PER FLOWSHEET.
--- NOTE | 2016-10-17 21:05 | NUR ---
NO VISITORS PRESENT AT THIS TIME, ORAL CARE AND SUCTIONING PROVIDED, POSITIONED FOR COMFORT. VSS
--- NOTE | 2016-10-17 23:15 | NUR ---
REASSESSMENT PER FLOWSHEET, HR REMAINS SR ON CM, CONT POC.
[2016-10-18] VITALS (25 sets, daily range): BP systolic 111–135; BP diastolic 63–90
--- NOTE | 2016-10-18 00:50 | NUR ---
PT RESTING IN BED ON VENT WITH EYES CLOSED, NO APPARENT DISTRESS NOTED, VSS, CONT TO MONITOR.
[2016-10-18 04:46] LABS: BASOPHILS 0.5 % (0-2); EOSINOPHILS 5.5 % (0-7); HEMATOCRIT 27.8 % (42.0-54.0); HEMOGLOBIN 8.9 g/dL (13.5-17.5); LYMPHOCYTES 27.8 % (15-50); MCH 29.4 pg (26.0-34.0); MCV 91.7 fL (80.0-100.0); MEAN PLATELET VOLUME 9.4 fL (7.4-10.4); MONOCYTES 18.2 % (2-11); PLATELET COUNT 203 10x3/uL (130-400); RBC 3.03 10x6/uL (4.20-6.10); RDW 14.9 % (11.5-14.5); WBC 4.2 10x3/uL (4.8-10.8)
[2016-10-18 05:21] LABS: ALBUMIN 2.2 g/dL (3.4-5.0); ALKALINE PHOSPHATASE 46 U/L (46-116); CALC OSMOLALITY 264 mosm/kg (275-300); CARBON DIOXIDE 31.2 mmol/L (21.0-32.0); CHLORIDE - SERUM 103 mmol/L (98-107); CREATININE - SERUM 0.6 mg/dL (0.6-1.3); GLUCOSE 113 mg/dL (74-106); MAGNESIUM - SERUM 1.8 mg/dL (1.8-2.4); POTASSIUM - SERUM 3.3 mmol/L (3.5-5.1); PROTEIN - SERUM 5.5 g/dL (6.4-8.2); SODIUM 133 mmol/L (136-145); UREA NITROGEN 8 mg/dL (7-18); eGFR NON AFRICAN AMERICAN > 90 mL/min (90-120)
[2016-10-18 05:29] LABS: ALT (SGPT) 747 U/L (10-68)
--- NOTE | 2016-10-18 09:21 | NUR ---
0800 AM ASSESMETNT IS COMPLETE... SEE FLOW SHEET FOR FINDINGS.. PT IS ORALLY INTUBATED AND ON THE VENT.. THERE IS A DL CVL IN THE LEFT SC SEE FLOW SHEET FOR FLUID.. 0845 DR LOMAS IN TO SEE PT UPDATAE GIVEN .. 0900 GI HUGO SCALES IN TO SEE PT FOR GI
--- NOTE | 2016-10-18 09:23 | NUR ---
PLACED PT IN CPAP 10 PS 5 PEEP AND 30% 09:15
--- NOTE | 2016-10-18 11:15 | NUR ---
[address] MEYERS IN TO SEE PT AND ABG DRAWN AT THI TIME..
[2016-10-18 11:39] LABS: INR 0.97 (0.85-1.17); PROTIME 12.7 SECONDS (11.6-15.0)
[2016-10-18 11:45] LABS: % SATURATION 18 % (15-55); IRON 51 ug/dl (35-150); TOTAL IRON BIND CAPACITY 270 ug/dl (260-445); UNSAT IRON BIND CAPACITY 219 ug/dl (150-375)
--- NOTE | 2016-10-18 12:15 | NUR ---
Nutrition follow-up: Pt extubated; TF discontinued. Labs reviewed Clear liquid diet to start soon; will slowly advance if pt tolerates. RDN following.
--- NOTE | 2016-10-18 13:17 | NUR ---
1130 EXTUBATED BY RT TO 3 L NC SAT 98%.. PT COUGHING PRODUCTIVELY... TUBE FEEDING OFFOGT DCd 1200 WITHOUT VISITORS AT THIS TIME 1230 COMPLETE BATH GIVEN.. 1315 RESPIRATORY TX IN PROGRESS PT IS MOREE AWAKE AND STARTING TO ATTEMPT TO CONVERSE .. VOICE IS HOARSE AND IT IS DIFFICULT TO UNDERSTAND..
--- NOTE | 2016-10-18 18:16 | NUR ---
1500 WITHOUT VISITOR AT THIS TIME... 1600 I AND O DONE [id number] LASIX GIVEN EARLIER PER E MAR AND UOP IS ADDED TO THE DAYS TOTAL.. 1800 WITHOUT VISITOR ATT THIS TIME..
--- NOTE | 2016-10-18 19:30 | NUR ---
REPORT RECEIVED AND CARE ASSUMED. INITIAL SHIFT ASSESSMENT COMPLETED SEE FLOWSHEET. IVF AND IV LINES VERIFIED FOR CURRENT DATE AND TIME. PT CURRENTLY ON 3L O2 PER NC. IS ORIENTATED X 4 WITH MILD INTERMITTENT CONFUSION. WILL INTRODUCE ICE CHIPS AND ADVANCE TO CL DIET SLOWLY TOLERATED. PT BEING MONITORED PER STANDARD ICU PROTOCOL WITH ALARMS VERIFIED.
--- NOTE | 2016-10-18 20:45 | NUR ---
SISTER, CHRISTIAN, CALLED PASSWORD VERIFIED. SPOKE WITH PT DUE TO NATURE OF QUESTIONING AND PERMISSION OBTAINED. UPDATE GIVEN.
--- NOTE | 2016-10-18 21:00 | NUR ---
FRIEND AT BEDSIDE. UPDATE GIVEN. PT TOLERATING ICE CHIPS WELL NO SWALLOWING DIFFICULTY NOTED
--- NOTE | 2016-10-18 23:00 | NUR ---
SHIFT REASSESSMENT COMPLETED SEE FLOWSHEET
[2016-10-19] VITALS (24 sets, daily range): BP systolic 98–136; BP diastolic 62–89
--- NOTE | 2016-10-19 00:30 | NUR ---
RIGHT RESTRAINT REMOVED AFTER ASSESSING PT AND CONFERING IMPORTANCE OF NOT PULLING AT LINES AND TUBING. PT VERBALIZED COMPREHENSION. WILL CLOSELY MONITOR FOR CONTINUED NEED FOR RESTRAINTS
--- NOTE | 2016-10-19 02:00 | NUR ---
PT HAS BEEN COMPLIANT WITH RIGHT HAND/ARM UNRESTRAINED. PT VERBALIZED COMPREHENSION ABOUT SAFETY. LEFT RESTRAINT REMOVED.
--- NOTE | 2016-10-19 03:00 | NUR ---
SHIFT REASSESSMENT COMPLETED SEE FLOWSHEET. PT CURRENTLY WITH NO RESTRAINTS AND HAS BEEN COMPLIANT. PT HAS BEEN ABLE TO DRINK WATER WITH NO SWALLOWING DIFFICULTY NOTED. NO COUGHING AND DENIES DIFFICULTY.
[2016-10-19 03:57] LABS: BASOPHILS 0.5 % (0-2); EOSINOPHILS 3.8 % (0-7); HEMATOCRIT 29.1 % (42.0-54.0); HEMOGLOBIN 9.4 g/dL (13.5-17.5); IMMATURE GRANULOCYTES 0.4 % (0-5); LYMPHOCYTES 28.4 % (15-50); MCH 29.4 pg (26.0-34.0); MCHC 32.3 g/dL (31.0-37.0); MCV 90.9 fL (80.0-100.0); MEAN PLATELET VOLUME 9.7 fL (7.4-10.4); MONOCYTES 16.7 % (2-11); NEUTROPHILS 50.2 % (40-80); RDW 14.3 % (11.5-14.5)
[2016-10-19 03:58] LABS: PLATELET COUNT 265 10x3/uL (130-400); WBC 5.6 10x3/uL (4.8-10.8)
[2016-10-19 04:13] LABS: ALBUMIN 2.6 g/dL (3.4-5.0); ALKALINE PHOSPHATASE 51 U/L (46-116); ALT (SGPT) 605 U/L (10-68); BILIRUBIN - TOTAL 0.37 mg/dL (0.2-1.3); CALC OSMOLALITY 281 mosm/kg (275-300); CALCIUM 8.6 mg/dL (8.5-10.1); CHLORIDE - SERUM 107 mmol/L (98-107); CREATININE - SERUM 0.7 mg/dL (0.6-1.3); GLUCOSE 91 mg/dL (74-106); MAGNESIUM - SERUM 2.1 mg/dL (1.8-2.4); PROTEIN - SERUM 6.1 g/dL (6.4-8.2); SODIUM 142 mmol/L (136-145); UREA NITROGEN 9 mg/dL (7-18); eGFR NON AFRICAN AMERICAN > 90 mL/min (90-120)
[2016-10-19 04:14] LABS: POTASSIUM - SERUM 3.3 mmol/L (3.5-5.1)
--- NOTE | 2016-10-19 04:15 | NUR ---
RADIOLOGY AT BEDSIDE FOR AM CXR
--- NOTE | 2016-10-19 06:00 | NUR ---
NO VISITORS AT BEDSIDE. PT STATED TEARFULLY THAT HE OVERDOSED ON TYLENOL BECAUSE HIS MOTHER RECENTLY . SUPPORT GIVEN. PT VERY LABILE TEARFUL ONE MINUTE AND THEN WITH SMILE AND EXPRESSIVE AFFECT
[2016-10-19 12:17] LABS: HEPATITIS C ANTIBODY <0.1 (0.0-0.9)
--- NOTE | 2016-10-19 15:33 | NUR ---
0800 AM ASSESMENT IS COMPLETE SEE FLOW SHEET FOR FINNDINGS.. 0830 DR WHITE IN TO SEE PT UPDATE GIVEN.. REGULAR DIET SERVED TO PT.. [address] MCDUFFIE IN TO SEE PT.. UPDATE IS GIVEN.. PT FED BREAKFAST CHEWS AND SWALLOWS WITHOUT DIFFICULTY.. STATES HE IS WEAK IN HIS ARMS AND HIS FINE MOTOR CO ORDINATION IS NOT GOOD 100% BREAKFAST CONSUMED.. 0845 DR LOMAS IN TO SEE PT SPOKE WITH YORDY ARIAS 0900 [facility] VVISITORS AT THIS TIME.. 1115 DR MEYERS IN TO SEE PT .. DR MCDUFFIE IN TO SEE PT... 1200 FAMILY IN TO SEE PT AND THEY ASSISTED PT WITH LUNCH PT ATE 100% WITH OUT DIFFICULTY.. 1330 DR YOUNG IN TO SEE PT ... 1500 WITHOUT VISITORS AT THIS TIME AND PT IS SLEEPING..
--- NOTE | 2016-10-19 19:04 | NUR ---
1630 I AND O DONE.. 1645 DIET SERVED TO PT . PT STATES HE WILL WAIT FOR THE FAMILY TO HELP HIM EAT.. 1800 FAMILY IN TO SEE PT.. ASSISTING PT WITH MEAL
--- NOTE | 2016-10-19 19:15 | NUR ---
REPORT RECEIVED AND CARE ASSUMED. SHIFT ASSESSMENT COMPLETED SEE FLOWSHEET. PT CONTINUES TO BE MONITORED PER STANDARD ICU PROTOCOL. ALL IVF AND LINES VERIFIED FOR CURRENT DATE. ALL LABELED APPROPRIATELY AND WILL BE CHANGED AND DOCUMENTED ON MAR WHEN CHANGED. PT IS AAOX4 AFFECT REMAINS LABILE CHANGING FROM TEARFUL TO SMILING RAPIDLY. PT VERBALIZED INTENSE GRIEF OVER LOSS OF MOTHER AND EQUALLY INTENSE HATRED OF HIS BROTHER WHOM HE PERCEIVES TO BE PERSECUTING HIM. CONTINUE TO PROVIDE A SAFE ENVIRONMENT FOR PT.
--- NOTE | 2016-10-19 21:00 | NUR ---
NO VISITORS AT THIS TIME. 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 PT VERBALIZED GOOD COMPREHENSION OF MEDICATIONS
--- NOTE | 2016-10-19 23:00 | NUR ---
SHIFT REASSESSMENT COMPLETED NO SIGNIFICANT CHANGES. PT HAS BEEN SLEEPING AFTER BEDTIME SNACK AND HS MEDS
[2016-10-20] VITALS (23 sets, daily range): BP systolic 85–147; BP diastolic 56–94
--- NOTE | 2016-10-20 01:00 | NUR ---
PT SLEEPING RESP REG AND NONLABORED
--- NOTE | 2016-10-20 03:00 | NUR ---
PT AWAKE, AGREABLE TO A BATH AT THIS TIME, COMPLETE BED BATH GIVEN WITH ALL LINENS CHANGED. CVL DRESSING CHANGED WITH STERILE TECHNIQUE. PT REQUESTED MUIR TO BE REMOVED. F/C REMOVED PER HIS REQUEST AFTER DEFLATING BULB. SHIFT REASSESSMENT COMPLETED SEE FLOWSHEET
--- NOTE | 2016-10-20 05:00 | NUR ---
LABS DRAWN FROM PROXIMAL PORT AND SENT FOR ANALYSIS. PT HAS BEEN SLEEPING RESTING WITH REG AND NONLABORED RESP
[2016-10-20 05:26] LABS: BASOPHILS 0.4 % (0-2); HEMATOCRIT 28.2 % (42.0-54.0); HEMOGLOBIN 9.2 g/dL (13.5-17.5); IMMATURE GRANULOCYTES 0.3 % (0-5); LYMPHOCYTES 23.4 % (15-50); MCH 29.4 pg (26.0-34.0); MCHC 32.6 g/dL (31.0-37.0); MCV 90.1 fL (80.0-100.0); MEAN PLATELET VOLUME 9.4 fL (7.4-10.4); MONOCYTES 12.2 % (2-11); NEUTROPHILS 60.7 % (40-80); RBC 3.13 10x6/uL (4.20-6.10); RDW 14.5 % (11.5-14.5); WBC 6.9 10x3/uL (4.8-10.8)
[2016-10-20 05:35] LABS: PLATELET COUNT 325 10x3/uL (130-400)
[2016-10-20 05:42] LABS: ALBUMIN 2.5 g/dL (3.4-5.0); ALKALINE PHOSPHATASE 50 U/L (46-116); ALT (SGPT) 460 U/L (10-68); CALC OSMOLALITY 280 mosm/kg (275-300); CALCIUM 8.5 mg/dL (8.5-10.1); CARBON DIOXIDE 27.5 mmol/L (21.0-32.0); CHLORIDE - SERUM 107 mmol/L (98-107); CREATININE - SERUM 0.7 mg/dL (0.6-1.3); GLUCOSE 110 mg/dL (74-106); MAGNESIUM - SERUM 2.1 mg/dL (1.8-2.4); POTASSIUM - SERUM 3.8 mmol/L (3.5-5.1); PROTEIN - SERUM 5.9 g/dL (6.4-8.2); SODIUM 141 mmol/L (136-145); UREA NITROGEN 11 mg/dL (7-18); eGFR NON AFRICAN AMERICAN > 90 mL/min (90-120)
--- NOTE | 2016-10-20 05:45 | NUR ---
LABS REVIEWED AND NO TREATMENT NEEDED FOR ELECTROLYTE PROTOCOL
--- NOTE | 2016-10-20 06:15 | NUR ---
PT ALLOWED TO SIT ON SIDE OF BED. DEMONSTATED GOOD STRENGTH. PT TRANSFERED WITH MINIMAL ASSIST TO CHAIR PER REQUEST IN ORDER TO EAT BREAKFAST OUT OF BED
--- NOTE | 2016-10-20 10:43 | NUR ---
Nutrition follow-up: Diet: Regular PO intake 100% of meals Labs reviewed Wt: 221# +BM RDN following.
--- NOTE | 2016-10-20 12:42 | CN ---
PATIENT NAME:MERON MARTIN MEDICAL RECORD: [id number] : 71 LOCATION:DOMINIQUED.2311 ADMIT DATE: 10/10/16 ACCOUNT: [id number] CONSULTING PHYSICIAN: BRAD LIMA MD REFERRING PHYSICIAN: ORQUIDEA WHITE DO DATE OF CONSULTATION: 10/19/2016 Psychiatric Consultation IDENTIFYING DATA: The patient is 40 years old and he is admitted to the hospital on a voluntary basis. CHIEF COMPLAINT: Overdose. HISTORY OF PRESENT ILLNESS: The patient took a very substantial dose of Tylenol on October 10. He did this with the full expectation that it would kill him. He was actually on a ventilator for most of the past week and has only recently been extubated. He cries and tells me that he is very depressed and that the primary factor in his depression is how upset he is about the of his mother in August. He says that he is sorry that the suicide attempt did not succeed. He endorses numerous vegetative depressive symptoms and denies substance abuse. MENTAL STATUS EXAMINATION: The patient is awake, alert and oriented to person, place, time and situation. His mood is flat. His affect is constricted. Thought processes are circumstantial. Memory, concentration and abstraction abilities are mildly impaired and he denies that he would seek to harm himself or others as well as overt psychotic symptoms. ASSESSMENT: 1. Major depression. 2. Status post overdose. PLAN: The patient will be treated with current medications. He apparently is medically stable or very close to being medically stable and I am recommending transferring him to inpatient psychiatric care as soon as that is practicable. He is in agreement with this plan. TRANSINT:[id number] Voice Confirmation ID: [id number] DOCUMENT ID: [id number] BRAD LIMA MD at 1242 CC: [id number] DICTATION DATE: 10/19/16 1507 VIBRATORY PILE DRIVER: 10/19/16 1528 ADM IN [facility] [address] [place] [address]
--- NOTE | 2016-10-20 15:11 | NUR ---
CM REASSESSMENT NOTE: REFERRAL TO [facility] ([facility]) HAS BEEN SENT.
--- NOTE | 2016-10-20 17:12 | NUR ---
CM REASSESSMENT NOTE: PATIENT WAS DENIED AT [facility]. REFERRAL SENT TO [facility] FOR [place] IP PSYCH PLACEMENT. DI ([facility]) [phone] FAX [phone]
--- NOTE | 2016-10-20 19:15 | NUR ---
REPORT RECEIVED AND CARE ASSUMED. INITIAL SHIFT ASSESSMENT COMPLETED SEE FLOWSHEET. PT CONTINUES TO BE MONITORED PER STANDARD ICU PROTOCOL WITH ALARMS VERIFIED AND ARE ON. PT IS VISIBLE FROM NURSES STATION. AFFECT TONIGHT IS APPROPRIATE. PT AWARE OF PLAN TO TRANSFER TO INPATIENT FACILITY WHEN CLEARED BY PHYSICIAN. PT IS IN AGREEMENT WITH TRANSFER. PT DOES NOT HAVE ANY IVF AT THIS TIME AND [facility] IS SL.
--- NOTE | 2016-10-20 20:30 | NUR ---
CALL PLACED TO SIGNIFICANT OTHER PER PT [facility]
--- NOTE | 2016-10-20 21:42 | NUR ---
HS MEDS GIVEN DOCUMENTED ON AUG. PT REFUSED LACTULOSE. AMMONIA LEVEL VERIFIED AND WNL AT LAST CHECK. NOT GIVEN
--- NOTE | 2016-10-20 23:00 | NUR ---
SHIFT REASSESSMENT COMPLETED SEE FLOWSHEET. PT HAS BEEN SLEEPING WELL
[2016-10-21] VITALS (9 sets, daily range): BP systolic 107–142; BP diastolic 62–90
--- NOTE | 2016-10-21 01:00 | NUR ---
PT AWAKE AT THIS TIME DENIES NEEDS WATCHING TV IN NO APPARENT DISTRESS
--- NOTE | 2016-10-21 01:45 | NUR ---
PT ASSISTED TO W/C AND TAKEN FOR X-RAY.
--- NOTE | 2016-10-21 02:00 | NUR ---
PT ASSISTED BACK INTO BED AND RECONNECTED TO MONITORS WITH ALARMS VERIFIED. PT DENIES NEEDS.
--- NOTE | 2016-10-21 03:00 | NUR ---
SHIFT REASSESSMENT COMPLETED. PT RESTING STATED HE IS SLEEPY NOW AND IS GOING TO TRY TO GET SOME SLEEP. DENIES NEEDS.
--- NOTE | 2016-10-21 03:34 | NUR ---
PT C/O UNABLE TO REST DUE TO CORDS AND CABLES. PT DISCONNECTED FROM CARDIAC MONITORING AND B/P CUFF REMOVED PER HIS REQUEST. WILL CONTINUE TO MONITOR
--- NOTE | 2016-10-21 04:30 | NUR ---
PT ASLEEP, RESP REG AND NONLABORED. VENOUS SPECIMEN OBTAINED FROM PROXIMAL PORT FOR AM LABS, PORT FLUSHED WITH NS. SPECIMEN SENT TO LAB FOR ANALYSIS.
[2016-10-21 04:38] LABS: BASOPHILS 0.4 % (0-2); EOSINOPHILS 4.4 % (0-7); HEMATOCRIT 28.3 % (42.0-54.0); HEMOGLOBIN 9.4 g/dL (13.5-17.5); IMMATURE GRANULOCYTES 0.2 % (0-5); LYMPHOCYTES 36.3 % (15-50); MCH 29.9 pg (26.0-34.0); MCHC 33.2 g/dL (31.0-37.0); MCV 90.1 fL (80.0-100.0); MEAN PLATELET VOLUME 9.5 fL (7.4-10.4); MONOCYTES 13.1 % (2-11); NEUTROPHILS 45.6 % (40-80); PLATELET COUNT 370 10x3/uL (130-400); RBC 3.14 10x6/uL (4.20-6.10); WBC 5.5 10x3/uL (4.8-10.8)
[2016-10-21 04:53] LABS: ALBUMIN 2.6 g/dL (3.4-5.0); ALKALINE PHOSPHATASE 50 U/L (46-116); ALT (SGPT) 375 U/L (10-68); BILIRUBIN - TOTAL 0.27 mg/dL (0.2-1.3); CALC OSMOLALITY 279 mosm/kg (275-300); CALCIUM 8.7 mg/dL (8.5-10.1); CARBON DIOXIDE 27.7 mmol/L (21.0-32.0); CHLORIDE - SERUM 106 mmol/L (98-107); CREATININE - SERUM 0.6 mg/dL (0.6-1.3); GLUCOSE 111 mg/dL (74-106); POTASSIUM - SERUM 3.9 mmol/L (3.5-5.1); SODIUM 140 mmol/L (136-145); UREA NITROGEN 12 mg/dL (7-18); eGFR NON AFRICAN AMERICAN > 90 mL/min (90-120)
--- NOTE | 2016-10-21 05:26 | NUR ---
LABS REVIEWED, ELETROLYTE PROTOCOL REVIEWED, NO TREATMENT NEEDED. PT SLEEPING AT THIS TIME. RESP REG AND NONLABORED. SUICIDE PRECAUTIONS OBSERVED
--- NOTE | 2016-10-21 09:08 | NUR ---
0800 AM ASSESMENT IS COPLETE SEE FLOW SHEET FOR FINDINS.. PT IS AWAKE AND ALERT PT IS APPROPRIATE IN RESPONSES.. VOIDS IN URINAL.. BREAKFAST SERVED AND FEEDING SELF.. 0900 1000% DIET IS EATEN AND VISITOR IN TO SEE PT..
[2016-10-21 09:17] LABS: SPE - A/G RATIO 0.9 (0.7-1.7); SPE - ALBUMIN 2.6 g/dL (2.9-4.4); SPE - ALPHA-1 GLOBULIN 0.4 g/dL (0.0-0.4); SPE - ALPHA-2 GLOBULIN 0.8 g/dL (0.4-1.0); SPE - BETA GLOBULIN 1.1 g/dL (0.7-1.3); SPE - GAMMA GLOBULIN 0.5 g/dL (0.4-1.8); SPE - M-SPIKE Not Observed g/dL (Not Observed); SPE - TOTAL PROTEIN 5.4 g/dL (6.0-8.5)
--- NOTE | 2016-10-21 10:28 | NUR ---
CM REASSESSMENT NOTE: [facility] REFERRAL SENT FOR IP PSYCH AT [place]. UPDATED INFO FAXED TO CHERELLE AT [facility]. SCREENER CALLED TO EVAL PATIENT (JON) - WILL BE HERE WITHIN 2 HOURS.
--- NOTE | 2016-10-21 11:00 | NUR ---
1030 [facility] HAS CALLED HERE AND UPDATE GIVEN .. THEYREQUESTED THAT COMMUNITY COUNSELING BE CONTACTED AND THEY ARE TOASSES PT PRIOR TO PTS ACCEPTANCE TO [facility].. CASE MANAGEMENT GLORIA NOTIFIED... 1045 FRANCO WITH CASE MANAGMENT IN TO SEE PT .. WAITING ON COMMUNITY COUNSELING TO SEE PT..
--- NOTE | 2016-10-21 13:21 | NUR ---
1200 LUNCH SERVED... VISITOR AT THE BEDSIDE 1230 VISITOR CONTINUES AT THE BEDSIDE AND COMMUNITY COUNSELING HER TO SCREEN PT.. 1315 COMMUNITY COUNSELING CONTINUES AT THE BEDSIDE.. FAMILY VISITOR HAS LEFT AT THIS TIME
--- NOTE | 2016-10-21 13:32 | NUR ---
5030 CASE MANAGEMENT IN TO SPEAK WITH THE COMMUNITY COUNSELOR AT THE BEDSIDE..
--- NOTE | 2016-10-21 14:53 | NUR ---
CM REASSESSMENT NOTE: CM WAS CALLED TO ICU TO SPEAK WITH SCREENER (JON HAHN,[facility]) REGARDING PATIENT. WHEN CM ARRIVED TO ROOM JON ASKED WHAT OUR INTENTIONS WERE FOR THE PATIENT. CM EXPLAINED OUR PHYSICIANS HAVE RECOMMENDED IP PSYCH AND CM HAS SENT A REFERRAL TO [facility] AT [place]. THE SCREENER STATED SHE NEEDED HIS MED LIST AND FACE SHEET. CM WENT TO ICU NURSE NAKITA AND SHE PRINTED THEM FOR HER. CM LEFT AT THAT TIME AND REC. CALL TO COME BACK TO ICU THAT THE SCREENER STATED HE WOULD BENEFIT FROM OUTPATIENT THERAPY AND MED EVALUATION. CM QUESTIONED HER AND STATED YOU ARE RECOMMENDING THIS INSTEAD OF IP PSYCH AND SHE RAISED HER EYEBROWS AND LOOKED AT ME STATING "YES I DO". CM STATED TO HER HE WAS ON THE VENT FOR SEVERAL DAYS AND HAD AGREED WITH CM TO GO TO IP PSYCH FOR AWHILE. JON (SCREENER) SAID "I THINK OP TREATMENT WOULD BENEFIT HIM MORE AND HE PROMISED HE WOULD GET HELP IF HE HAD BAD THOUGHTS." CM STATED ICU NURSE WOULD CALL DOCTOR WITH HER RECOMMENDATIONS. JODEE SENT THE ASSESSMENT TO [facility]-(WAS REQUESTED BY [facility]).
--- NOTE | 2016-10-21 15:37 | NUR ---
1430 COMUNITY COUNSELOR JON OUT AT DESK STATES THAT SHE IS RECOMMENDING THAT PT HAVE OUTPT TX... WHEN QUESTIONNED ABOUT THIS DETERMINATION JON BECAME VERY AGITATED DTATING THAT YES HE WAS FINE AND COULD DO OUTPATIENT TX HER TONE OF VOICE BECAME VERY FORCFUL AND HER FACIAL EXPRESSION BECAME FIXED AND ANGRY IN APPEARANCE.. FRANCO WITH CASE MANAGMENT CAME INTO THE ICU AT THIS TIME AND SPOKE WITH JON AND ASKED THE SAME QUESTION AND THE SAME RESPONSE BY JON WAS OBSERVED TOWARD FRANCO...IT WAS REITERATED TO HER THAT THIS PPATIENT HAS BEEN ON THE VENTILATOR FOR A WEEK POST OVERDOSE AND HAD NOT BEEN EXPECTED TO RECOVER BUT SUBSIQUENTLY HAS BEEN EXTUBATED AND IS APPROPRIATE IN HIS RESPONSES. 1500 PT IS QUESTIONING DC EXPLAINED TO HIM THE SITUATION THAT HIS ACTIONS WERE CONSIDERED A SERIOUS ATTEMPT AT SUICIDE AND THE DRs ARE STILL ADAMET THAT HE HAVE INPATIENT TX.. FRANCO FROM CASE MANAGMENT IN TO TALK WITH PT AT THIS TIME...
--- NOTE | 2016-10-21 17:42 | NUR ---
1600 PT IS AMBULATING IN ROOM BRUSHING TEETH AND PREFORMING ADLs 1700 DIET SERVED AND P-T IS FEEDING SELF.. 1730 NO WORD FROM [facility] AT THIS TIME.. SPOKE WITH CASE MANAGMENT AND SHE HAS NOT HEARD FROM THEM EITHER..
--- NOTE | 2016-10-21 18:07 | NUR ---
JODEE REC. PHONE CALL FROM CHERELLE AT [facility] IN [place]. CHERELLE EXPLAINED SHE SPOKE WITH DR. OLGUIN REGARDING RECOMMENDATIONS OF SCREENER AND DR. OLGUIN STATED TO GO WITH WHAT THE SCREENER RECOMMEDED FOR OP TREATMENT. JODEE SPOKE WITH ICU NURSE NAKITA REGARDING THE DECISION.
--- NOTE | 2016-10-21 19:00 | NUR ---
REPORT RECEIVED AND ASSESSMENT COMPLETED. PT IS XFER AWAITING PLACEMENT IN INPATIENT PSYCH IF POSSIBLE. WILL MONITOR THROUGHOUT SHIFT.
--- NOTE | 2016-10-21 19:22 | NUR ---
1829 EXPLAINED TO PTAND FAMILY THE EVENTS OF EPISCOPALIAN REFUSAL AND THATT CASE MANAGMENT WILL FOLLOW UP IN MORNING ..
--- NOTE | 2016-10-21 21:00 | NUR ---
PT REFUSED NS. DID NOT WANT TO BE CONNECTED TO IV LINE. STATES PUSH MEDS ARE OKAY IN HIS CENTRAL LINE THOUGH. DISCUSSED PLACEMENT ISSUES WITH PT. INSTRUCTED PT TO SPEAK WITH MD IN AM FOR FULL DETAILS AND OPTIONS.
--- NOTE | 2016-10-21 23:00 | NUR ---
NO CHANGES IN STATUS AT THIS TIME. PT RESTING IN ROOM.PROVIDED BELINDA VALENTE PER PT REQUEST. WILL MONITOR
--- NOTE | 2016-10-22 01:00 | NUR ---
NO CHANGES IN STATUS AT THIS ITME.
[2016-10-22 03:00] VITALS: BP 122/79
--- NOTE | 2016-10-22 03:46 | NUR ---
RADIOLOGY AT BEDSIDE. NO OTHER CHANGES AT THIS TIME. VSS WILL CONTINUE TO MONITOR
--- NOTE | 2016-10-22 05:00 | NUR ---
NO CHANGES IN STATUS AT THIS TIME. VSS. WILL MONITOR
[2016-10-22 05:23] LABS: BASOPHILS 0.7 % (0-2); EOSINOPHILS 3.9 % (0-7); HEMATOCRIT 30.1 % (42.0-54.0); HEMOGLOBIN 9.8 g/dL (13.5-17.5); IMMATURE GRANULOCYTES 0.2 % (0-5); LYMPHOCYTES 29.5 % (15-50); MCH 29.3 pg (26.0-34.0); MCHC 32.6 g/dL (31.0-37.0); MCV 90.1 fL (80.0-100.0); MEAN PLATELET VOLUME 9.4 fL (7.4-10.4); MONOCYTES 11.8 % (2-11); NEUTROPHILS 53.9 % (40-80); PLATELET COUNT 427 10x3/uL (130-400); RBC 3.34 10x6/uL (4.20-6.10); RDW 14.6 % (11.5-14.5); WBC 6.1 10x3/uL (4.8-10.8)
[2016-10-22 05:35] LABS: ALBUMIN 2.6 g/dL (3.4-5.0); ALKALINE PHOSPHATASE 48 U/L (46-116); ALT (SGPT) 299 U/L (10-68); BILIRUBIN - TOTAL 0.33 mg/dL (0.2-1.3); CALC OSMOLALITY 281 mosm/kg (275-300); CALCIUM 7.9 mg/dL (8.5-10.1); CARBON DIOXIDE 24.5 mmol/L (21.0-32.0); CHLORIDE - SERUM 108 mmol/L (98-107); CREATININE - SERUM 0.6 mg/dL (0.6-1.3); GLUCOSE 93 mg/dL (74-106); MAGNESIUM - SERUM 1.8 mg/dL (1.8-2.4); SODIUM 142 mmol/L (136-145); UREA NITROGEN 11 mg/dL (7-18); eGFR NON AFRICAN AMERICAN > 90 mL/min (90-120)
[2016-10-22 05:40] LABS: POTASSIUM - SERUM 3.3 mmol/L (3.5-5.1)
--- NOTE | 2016-10-22 06:58 | EEG ---
PATIENT:MERON MARTIN DATE OF SERVICE: 10/10/16 MEDICAL RECORD: [id number] DATE OF : 71 LOCATION:D.231 D.ICU ADMISSION DATE: 10/10/16 REFERRING PHYSICIAN: INTERPRETING PHYSICIAN: SARITA VENEGAS MD DATE OF SERVICE: 10/14/2016 Electroencephalographic Report Referred by myself as an inpatient, currently in room 2311. ELECTROENCEPHALOGRAM NUMBER: [id number]. DATE AND TIME OF EXAMINATION: 10/12/2016 at 2:30 p.m. TECHNICAL DATA: This electroencephalographic recording consisted of approximately 20 minutes of data collection utilizing the international 10/20 system of electrode placement and both referential and non-referential montages. Sixteen channels of electrocerebral recording are accompanied by a 17th channel dedicated to the electrocardiographic rhythm and 2 channels of electromyographic recording. Recording is performed in the lethargic state utilizing activation by photic stimulation. ELECTROENCEPHALOGRAPHIC DATA: The entirety of the recorded electrocerebral activity is performed in the lethargic state. The patient is on Diprivan at the beginning of the recording and this was not stopped until 5 minutes into the recording. Electromyographic artifact is markedly diminished and rapid eye movements are not seen. A posterior dominant background has not developed. The predominant electrocerebral activity is a mixture of irregular generalized and symmetric slow wave activities ranging from 2-4 Hz seen continuously throughout the recording. In approximately 15 minutes into the recording, there is an increase in electromyographic artifact and there is spontaneous eye opening, but there is no appreciable change in the recorded electrocerebral activity. No focal slowing is identified. No epileptiform discharges are seen. Photic stimulation induces no abnormal change in the recorded electrocerebral activity. INTERPRETATION: Continuous slow, generalized (lethargy). This electroencephalographic recording is indicative of a moderately severe diffuse encephalopathy, at least in part likely contributed to by sedative medication. TRANSINT:[id number] Voice Confirmation ID: [id number] DOCUMENT ID: [id number] ELECTROENCEPHALOGRAM REPORT [id number] MERON MARTIN DONALD P MD at 0658 CC: [id number] DICTATION DATE: 10/14/16 0700 ASSOCIATE SOFTWARE APPLICATION ENGINEER: 10/14/16 1617 ADM IN [place] [id number] [place] [address]
--- NOTE | 2016-10-22 10:51 | NUR ---
Nutrition follow-up: Diet: Regular PO intake 100% of meals Labs reviewed +BM
[2016-10-22 11:00] VITALS: BP 136/88
--- NOTE | 2016-10-22 13:02 | NUR ---
SPOKE TO DR MOLINA ON THE PHONE. DR MOLINA STATES THAT PT IS OK TO DC HOME AND TO DO OUT PATIENT COUNSELING. WILL CALL AND REPORT TO DR WHITE. NO HARM CONTRACT SIGNED BY PT PER ADMINISTRATION.
--- NOTE | 2016-10-22 13:16 | NUR ---
PT STATES THAT HE WANTS TO SIGN HIS SELF OUT OF THE HOSPITAL TODAY AND STATES THAT HE NEEDS TO KNOW THE CONSEQUENCES OF GOING AMA. CM CALLED AND SHE CAME TO SEE PT. ADMIN CALLED AND Dora BACON ROUNDED ON PT. DR MOLINA STATES OK TO DC AND DR WHITE STATES THAT PT CAN LEAVE AMA BUT NO DC WILL BE DONE. ADMIN PAGED
--- NOTE | 2016-10-22 13:54 | NUR ---
REPORTED TO Yoana BACON AND OVENS SUPERVISOR RE: NO DC ORDER FROM DR WHITE.
--- NOTE | 2016-10-22 14:19 | NUR ---
JODEE MET WITH AMADO LOTT ICU NURSE REGARDING PATIENTS DISCHARGE. AMADO HAD SPOKE WITH DR. MOLINA REGARDING PATIENT AND HE SAID IT WAS FINE TO DISCHARGE WITH OP THERAPY AND AMADO THEN CALLED DR. WHITE. PATIENT SIGNED THE NO HARM FORM. PATIENT WAS OFFERED A RIDE AND HE STATED HIS FRIEND WAS PICKING HIM UP.
--- NOTE | 2016-10-22 15:38 | NUR ---
spoke to fish housekeeper and rec'd ok from fish housekeeper and administration that pt can leave ama.
--- NOTE | 2016-10-22 16:21 | NUR ---
PT LEFT AMA, AMA PAPERS SIGNED BY PT PRIOR TO PT LEAVING. NOTIFIED PT'S THAT HE IS LEAVING AND IS SENDING A TAXI TO FRONT ENTRANCE. WALKED PT TO FRONT ENTRANCE.
== END 2016-10-22 16:23 | disposition left against medical advice (07) | DRG 917 ==
LOC: D.ER 16:18 → D.ICU 18:08
PROVIDERS: Emergency Medicine; Family Medicine; Internal Medicine Gastroenterology; Internal Medicine Hematology & Oncology; Internal Medicine Pulmonary Disease; Psychiatry & Neurology Neurology; Urology; ADMIT Family Medicine
PROC: 0BH17EZ Insertion of Endotracheal Airway into Trachea, Via Natural or Artificial Opening (ICD-10-PCS; 2016-10-10)
PROC: 0T9B80Z Drainage of Bladder with Drainage Device, Via Natural or Artificial Opening Endoscopic (ICD-10-PCS; 2016-10-10)
PROC: 5A1955Z Respiratory Ventilation, Greater than 96 Consecutive Hours (ICD-10-PCS; 2016-10-10)
PROC: 0D9670Z Drainage of Stomach with Drainage Device, Via Natural or Artificial Opening (ICD-10-PCS; principal; 2016-10-10 22:40)
PROC: 02HV33Z Insertion of Infusion Device into Superior Vena Cava, Percutaneous Approach (ICD-10-PCS; 2016-10-11)
DX: T39.1X2A Poisoning by 4-Aminophenol derivatives, intentional self-harm, initial encounter (principal); G93.40 Encephalopathy, unspecified; J96.00 Acute respiratory failure, unspecified whether with hypoxia or hypercapnia; J69.0 Pneumonitis due to inhalation of food and vomit; N17.9 Acute kidney failure, unspecified; E87.2 Acidosis; J98.11 Atelectasis; E72.20 Disorder of urea cycle metabolism, unspecified; T40.2X2A Poisoning by other opioids, intentional self-harm, initial encounter; T43.622A Poisoning by amphetamines, intentional self-harm, initial encounter; G40.409 Other generalized epilepsy and epileptic syndromes, not intractable, without status epilepticus; I95.9 Hypotension, unspecified; E87.6 Hypokalemia; E78.5 Hyperlipidemia, unspecified; E83.51 Hypocalcemia; F41.8 Other specified anxiety disorders; J20.9 Acute bronchitis, unspecified; D64.9 Anemia, unspecified; F32.9 Major depressive disorder, single episode, unspecified

== ENCOUNTER 2017-07-25 11:49 | Emergency (ER) | payer MEDICAID ==
[2016-10-11 10:09] VITALS: BMI 25.7
[2017-07-25 12:18] LABS: APPEARANCE CLEAR (CLEAR); BILIRUBIN NEGATIVE (NEGATIVE); COLOR YELLOW (YELLOW); GLUCOSE NEGATIVE (NEGATIVE); KETONE NEGATIVE (NEGATIVE); NITRITE NEGATIVE (NEGATIVE); PROTEIN NEGATIVE (NEGATIVE); UROBILINOGEN NORMAL (NORMAL)
[2017-07-25 12:28] LABS: BACTERIA FEW /hpf (NONE SEEN); EPITHELIAL CELLS RARE /hpf (0-5); MUCUS <1+ /lpf (NONE SEEN); WHITE CELLS - URINE RARE /hpf (0-5)
== END 2017-07-25 15:58 | disposition home or self-care (01) ==
LOC: D.ER 11:49
PROVIDERS: Family Medicine
DX: J40 Bronchitis, not specified as acute or chronic (principal); R35.0 Frequency of micturition; R31.9 Hematuria, unspecified; F17.200 Nicotine dependence, unspecified, uncomplicated

== ENCOUNTER 2017-08-14 14:11 | Emergency (ER) | payer MEDICAID ==
[2016-10-11 10:09] VITALS: BMI 25.7
[2017-08-14 14:46] LABS: APPEARANCE CLEAR (CLEAR); BILIRUBIN NEGATIVE (NEGATIVE); COLOR YELLOW (YELLOW); GLUCOSE NEGATIVE (NEGATIVE); KETONE NEGATIVE (NEGATIVE); NITRITE NEGATIVE (NEGATIVE); PROTEIN NEGATIVE (NEGATIVE); UROBILINOGEN NORMAL (NORMAL)
[2017-08-14 14:55] LABS: BASOPHILS 0.4 % (0-2); EOSINOPHILS 0.2 % (0-7); HEMATOCRIT 47.1 % (42.0-54.0); HEMOGLOBIN 15.6 g/dL (13.5-17.5); IMMATURE GRANULOCYTES 0.6 % (0-5); LYMPHOCYTES 27.9 % (15-50); MCH 29.8 pg (26.0-34.0); MCHC 33.1 g/dL (31.0-37.0); MCV 90.1 fL (80.0-100.0); MEAN PLATELET VOLUME 10.3 fL (7.4-10.4); MONOCYTES 10.3 % (2-11); NEUTROPHILS 60.6 % (40-80); RBC 5.23 10x6/uL (4.20-6.10); RDW 13.9 % (11.5-14.5); WBC 9.8 10x3/uL (4.8-10.8)
[2017-08-14 14:56] LABS: PLATELET COUNT 233 10x3/uL (130-400)
[2017-08-14 15:10] LABS: ALBUMIN 3.7 g/dL (3.4-5.0); ALKALINE PHOSPHATASE 44 U/L (46-116); ALT (SGPT) 29 U/L (10-68); BILIRUBIN - TOTAL 0.23 mg/dL (0.2-1.3); CALC OSMOLALITY 276 mosm/kg (275-300); CALCIUM 9.2 mg/dL (8.5-10.1); CARBON DIOXIDE 26.3 mmol/L (21.0-32.0); CHLORIDE - SERUM 104 mmol/L (98-107); CREATININE - SERUM 0.9 mg/dL (0.6-1.3); GLUCOSE 89 mg/dL (74-106); POTASSIUM - SERUM 4.1 mmol/L (3.5-5.1); PROTEIN - SERUM 6.8 g/dL (6.4-8.2); SODIUM 138 mmol/L (136-145); UREA NITROGEN 17 mg/dL (7-18); eGFR NON AFRICAN AMERICAN > 90 mL/min (90-120)
== END 2017-08-14 17:03 | disposition home or self-care (01) ==
LOC: D.ER 14:11
PROVIDERS: Emergency Medicine
DX: N30.90 Cystitis, unspecified without hematuria (principal); I10 Essential (primary) hypertension; E03.9 Hypothyroidism, unspecified

== ENCOUNTER 2017-09-24 09:53 | Emergency (ER) | payer MEDICAID ==
[2016-10-11 10:09] VITALS: BMI 25.7
[2017-09-24 10:26] LABS: APPEARANCE CLEAR (CLEAR); BILIRUBIN NEGATIVE (NEGATIVE); COLOR YELLOW (YELLOW); GLUCOSE NEGATIVE (NEGATIVE); KETONE NEGATIVE (NEGATIVE); NITRITE NEGATIVE (NEGATIVE); PH 6.5 (5.0-6.0); PROTEIN NEGATIVE (NEGATIVE); SPECIFIC GRAVITY 1.015 (1.005-1.020); UROBILINOGEN NORMAL (NORMAL)
== END 2017-09-24 11:20 | disposition home or self-care (01) ==
LOC: D.ER 09:53
PROVIDERS: Emergency Medicine
DX: M54.5 Low back pain (principal); R10.9 Unspecified abdominal pain; F17.200 Nicotine dependence, unspecified, uncomplicated; I10 Essential (primary) hypertension

== ENCOUNTER 2017-10-08 17:06 | Observation (INO) | payer MEDICAID ==
[~2017-10-08] VITALS: Ht 185.4 cm; Wt 97.0 kg
--- NOTE | ~2017-10-08 | HP ---
PATIENT: MERON MARTIN MEDICAL RECORD: [id number] ACCOUNT: [id number] LOCATION:[address] : 71 ADMISSION DATE: 10/08/17 HISTORY AND PHYSICAL EXAMINATION DATE OF ADMISSION: 10/08/2017 CHIEF COMPLAINT: Substernal chest pain. HISTORY OF PRESENT ILLNESS: The patient is a 41-year-old gentleman who has presented to the Emergency Room. He is admitted to my service on unassigned medicine. The patient had been terminated from Dr. Garcia's practice. The patient presents complaining of substernal chest pain, sometimes radiating to his jaw as well as into his left arm. He has had no other associated symptoms. PAST MEDICAL HISTORY: Significant that he apparently has had chronic low back pain, apparently seeing chronic pain specialist, does have a history of having some urinary incontinence. He also has depression. He has hypothyroidism, hypertension. FAMILY HISTORY: Father in his 60s. Mother also of complication of COPD in her 60s. Apparently, there is some heart disease in the family. SOCIAL HISTORY: The patient is a smoker and has been so most of his life. Born in [place]. He has lived in [place], moved here several years ago. He is currently unemployed. ALLERGIES: No known drug allergies. MEDICATIONS: Include Celexa, Diovan, Remeron, Synthroid, Crestor, metoprolol. REVIEW OF SYSTEMS: CONSTITUTIONAL: He denies any headaches, seizure or syncope. HEENT: Denies change in visual or auditory acuity. PULMONARY: He denies any shortness of breath, cough, congestion, history of asthma or bronchitis. CARDIOVASCULAR: He has had no history of tachycardia. He has had some substernal chest pain. He has had no diaphoresis. Some dyspnea on exertion. GASTROINTESTINAL: No chronic nausea, vomiting, melena or hematochezia. GENITOURINARY: No urgency, frequency, or dysuria. PHYSICAL EXAMINATION: VITAL SIGNS: In the Emergency Room, the patient's temperature was 97.6, his respirations 18, his pulse was 133/84. HEENT: Head is normocephalic. No lesions. Ears: TMs clear. Eyes: Pupils equal, round, reactive to light. His extraocular movements are intact. His nasal cavity, oral cavity, oropharynx clear. NECK: Supple. There is no adenopathy. HEART: Regular rate. LUNGS: Clear. ABDOMEN: Soft, bowel sounds are positive. No organomegaly. DIAGNOSTIC DATA: The patient did have an EKG showing normal sinus rhythm, no ST wave change can be appreciated. The patient had a chest x-ray. Chest x-ray reveals no cardiopulmonary processes present. CBC had a white count 8.6, HISTORY AND PHYSICAL [id number] MERON MARTIN hemoglobin 14.7, hematocrit 43.2, his platelets were 272. Sodium was 140, potassium 4.3, chloride is 106, CO2 24.8, BUN 24, creatinine 1.1. Liver function normal. Cardiac enzymes unremarkable. ASSESSMENT: Substernal chest pain, history of hypertension, hyperlipidemia, hypothyroidism, depression. PLAN: The patient will be admitted. We will monitor cardiac enzymes. Cardiology consultation will be obtained. It is felt the patient should undergo cardiac catheterization to rule out any arteriosclerotic heart disease. TRANSINT:[id number] Voice Confirmation ID: [id number] DOCUMENT ID: [id number] DAYNA POLK MD at 1212 CC: [id number] DICTATION DATE: 10/09/17 1124 NEWS COMMENTATOR: 10/09/17 1138 ADM IN [place] [address] [place] [address]
--- NOTE | ~2017-10-08 | CN ---
PATIENT NAME:MERON MARTIN MEDICAL RECORD: [id number] : 71 LOCATION:D. D.2116 ADMIT DATE: 10/08/17 ACCOUNT: [id number] CONSULTING PHYSICIAN: DEVAN PIERCE MD REFERRING PHYSICIAN: DAYNA POLK MD DATE OF CONSULTATION: 10/09/2017 CARDIOLOGY CONSULT ADMITTING DIAGNOSES: 1. Chest pain. 2. Hypertension. 3. Gastroesophageal reflux disease. 4. Hyperlipidemia. 5. Chronic back pain. 6. Hypothyroidism on replacement. HISTORY OF PRESENT ILLNESS: This is a gentleman who has been having chest pain, shortness of breath and extreme fatigue for the past week. His chest pain worsened dramatically the last 2 days. His EKG is normal. Troponin is normal. He continues to have the episodes of chest discomfort that are quite severe. PHYSICAL EXAMINATION: GENERAL APPEARANCE: Well-nourished, well-developed, appears stated age. Level of distress, comfortable. PSYCHIATRIC: Mental status, alert, normal affect. Orientation, oriented to time, place and person. EYES: Lids and conjunctiva, noninjected. No discharge, no pallor. ENT: Lips, teeth, gums, normal dentition. Oropharynx, no cyanosis, no pallor. NECK: Carotid arteries, bilateral normal upstroke, no bruits, no thrills. JUGULAR VEINS: No jugular venous pressure or distention. CERVICAL LYMPH NODES: Nontender, nonenlarged. THYROID: Not enlarged. Nontender. No nodules. LUNGS: Respiratory effort, unlabored. CHEST: Normal curvature. No thoracic deformity. No chest wall tenderness. Percussion, resonant. Auscultation, clear. No wheezes, no rales, no rhonchi. CARDIOVASCULAR: Precordial exam, nondisplaced. No heaves or pericardial thrills. Rate and rhythm, regular. Heart sounds, normal S1, normal S2. No S3, no gallop, no rub. Systolic murmur, not heard. Diastolic murmur, not heard. EXTREMITIES: No cyanosis, no edema. Peripheral pulses, full and equal in all extremities, except as noted. No bruits appreciated. ABDOMEN: Soft, nondistended. Normal aorta. No bruit. Nontender. No masses. Liver, nontender, no hepatomegaly. Spleen, nontender, no splenomegaly. MUSCULOSKELETAL: No joint tenderness. No joint swelling. No erythema. NEUROLOGICAL: Normal gait, normal strength, normal tone. SKIN: Warm and dry. REVIEW OF SYSTEMS: The patient reports easy bruising but reports no swollen glands. The patient reports no fever, no night sweats, no significant weight gain, no significant weight loss. No significant exercise tolerance. The patient reports no dry eyes, no irritation, no vision change. Patient reports no difficulty hearing and no ear pain. Patient reports no frequent nose bleeds or nose and sinus problems. Patient reports on arm pain on exertion. No shortness of breath while lying down. No history of heart murmur. Patient reports no cough, no wheezing or coughing up blood. Patient reports no CONSULT REPORT [id number] MERON MARTIN abdominal pain, no vomiting. Normal appetite. No diarrhea and not vomiting blood. No nausea and no constipation. Patient reports no incontinence. No difficulty urinating. No hematuria. No increased frequency. Patient reports no muscle aches. No weakness, no arthralgias, no back pain. No swelling of the extremities. Patient reports no abnormal mole, no jaundice, no rashes. Reports no loss of consciousness. No weakness and no numbness. No seizures, dizziness, or headaches. The patient reports no depression, no sleep disturbance, feeling safe in a relationship and no alcohol abuse. Patient reports on fatigue. Reports no runny nose or sinus pressure. No itching, no hives, and no frequent sneezing. OVERALL IMPRESSION: Chest discomfort, unknown if this is his GERD or if this is cardiac in nature due to the fact that he continues to have this and has been in an unstable fashion for the past 2 days. We will proceed with coronary angiography in the a.m. Further care depends upon the findings of the angiography. TRANSINT:[id number] Voice Confirmation ID: [id number] DOCUMENT ID: [id number] DEVAN PIERCE MD at 1630 CC: [id number] DICTATION DATE: 10/09/17 1033 MANAGER PLACEMENT: 10/09/17 1125 DIS IN 10/10/17 [facility] [address] [place] [address]
--- NOTE | ~2017-10-08 | OP ---
PATIENT NAME: MERON MARTIN MEDICAL RECORD: [id number] :71 LOCATION:D.M2 D.2116 ADMISSION DATE:10/08/17 SURGEON: DEVAN PIERCE MD DATE OF OPERATION: 10/10/2017 PROCEDURES: 1. Left heart catheterization. 2. Selective coronary angiography. 3. Left ventriculogram. INDICATION: Chest pain compatible with angina. PROCEDURE IN DETAIL: After informed consent was obtained and after a detailed description of the risks, benefits as well as alternative therapies, the patient elected to proceed with angiogram and heart catheterization. The right radial area was prepped and draped in normal sterile fashion. Right radial artery was cannulated via modified Seldinger technique with placement of 6-Cymraes sheath. All catheters exchanged through this sheath. FINDINGS: Left ventriculogram was performed in standard 30-degree CASE view, reveals good cardiac wall motion throughout all segments. Overall ejection fraction estimated 60%. SELECTIVE CORONARY ANGIOGRAPHY: Left main, left anterior descending, left circumflex, and right coronary artery are all smooth-walled vessels with no angiographic evidence of coronary artery disease. OVERALL IMPRESSION: 1. No angiographic evidence of coronary artery disease. 2. Normal left heart pressures. 3. Normal left ventricular systolic function. Chest pain is noncardiac in etiology. No further cardiac workup needs to be ascertained. TRANSINT:[id number] Voice Confirmation ID: [id number] DOCUMENT ID: [id number] DEVAN PIERCE MD at 1630 CC: DAYNA POLK [id number] DICTATION DATE: 10/10/17 0904 STUFFER: 10/10/17 1108 DIS IN 10/10/17 [facility] [address] [place] [address]
--- NOTE | ~2017-10-08 | HEMODYNAMI ---
PATIENT:MERON MARTIN MEDICAL RECORD: [id number] : 71 [facility] [id number] ADMISSION DATE: 10/08/17 Generatedon:10/10/20179:05 Patient name: MERON MARTIN Patient #: [id number] SSN: : 1975 Date of study: 10/10/2017 Page: Of Hemodynamic Procedure Report Patient Data Patient Demographics Procedure consent was obtained First Name: MERON Gender: Male Last Name: VERONICA : 1975 [facility] Initial: GARCÍA Age: 41 year(s) Patient #: [id number] Race: Additional ID: [id number] Contact details [address]: [address] [place] [address] State: [place] City: [place] Zip code: [address] Admission Admission Data Admission Date: 10/08/2017 Admission Time: 20:42 Room #: D.2116 Height (in.): 185 BSA: 3.1 (m2) Height (cm.): 469.9 BMI: 1.99 (kg/m2) Weight (lbs.): 97 Weight (kg.): 44 Lab Results Lab Result Date: 10/10/2017 Lab Result Time: 0:00 Biochemistry Name Units Result Min Max BUN mg/dl 20 --(----)*- 7 18 Creatinine mg/dl 1 --(--*-)-- 0.6 1.3 CBC Name Units Result Min Max Hemoglobin g/dl 14.3 --(*---)-- 13.5 17.5 Procedure Procedure Types Cath Procedure Diagnostic Procedure [facility] w/Coronaries Procedure Description Procedure Date Procedure Date: 10/10/2017 Procedure Start Time: 8:53 Procedure End Time: 8:59 Procedure Staff Name Function Jose Cruz MD Ordering physician Ahmet Rubin MD Performing Physician Ivone Gaxiola RT Monitor Anna Nair RT Scrub Raiza Nicole RN Nurse Con Gill RN Nurse Procedure Data Cath Procedure Fluoroscopy Diagnostic fluoroscopy Total fluoroscopy Time: 1 time: 1 min min Diagnostic fluoroscopy Total fluoroscopy dose: dose: 137.93 mGy 137.93 mGy Contrast Material Contrast Material Type Amount (ml) Isovue 300 35 Entry Location Entry Primary Successful Side Size Upsize Upsize Entry Closure Cali ccessful Closure Location (Fr) 1 (Fr) 2 (Fr) Remarks Device Remarks Radial Right 6 Fr Mechanical artery Short Compression Estimated blood loss: 5 ml Diagnostic catheters Device Type Used For End Catheter Placement DIAGNOSTIC [place] 110cm 5 Multi-vessel Fr catheter ([id number]) Angiography DIAGNOSTIC AR 2 MOD 5 Fr Right Coronary catheter ([id number]) Angiography Procedure Complications No complications Procedure Medications Medication Administration Route Dosage Oxygen NC 2 l/min Lidocaine 2% added to field 20 0.9% NaCl I.V. 100 ml/hr Radial Cocktail I.A. 1 syringe (Verapomil 2mg/Nitro 400mcg/Heparin 1500units) Versed I.V. 2 mg Versed I.V. 2 mg Versed I.V. 2 mg Versed I.V. 2 mg Fentanyl I.V. 100 mcg Fentanyl I.V. 100 mcg Fentanyl I.V. 100 mcg Heparin Flush Bag added to field 2 bags (1000units/500ml NS) Hemodynamics Rest BSA: 3.1 (m2) HGB: 14.3 (g/dl) O2 Consumption: Estimated: 367.38 (ml/min) O2 Con sumption indexed: Estimated:118.51 (ml/min/m) Heart Rate: 63 (bpm) Pressure Samples Time Site Value (mmHg) Purpose Heart Use Rate(bpm) 8:54 LV 120/39,55 Snapshot 85 Snapshots Pre Cath Intra NCS Post Cath Vital Signs Time Heart Resp SPO2 etCO2 NIBP (mmHg) Rhythm Pain Sedation Rate (ipm) (%) (mmHg) Status Level (bpm) 8:42:38 66 31 100 0 142/81(103) NSR 0 (11) 10(A) , No pain 8:46:52 68 28 100 15 128/84(104) NSR 0 (11) 10(A) , No pain 8:51:43 67 26 100 18 133/86(103) NSR 0 (11) 10(A) , No pain 8:55:54 66 23 97 26.3 117/73(98) NSR 0 (11) 10(A) , No pain 9:00:52 69 24 96 27.1 93/79(92) NSR 0 (11) 10(A) , No pain Medications Time Medication Route Dose Verified Delivered Reason Notes E ffectiveness by by 8:42:04 Lidocaine 2% added 20ml Ahmet Leo for local to vial Scottie Rubin MD anesthetic field 8:42:56 Oxygen NC 2 l/min Ahmet Buffie used for Scottie Nicole RN procedure 8:43:22 0.9% NaCl I.V. 100 Ahmet Buffie Per ml/hr Scottie Nicole RN physician 8:43:55 Heparin Flush added 2 bags Amhet Adhikariie used for Bag to Scottie Nicole RN procedure (1000units/500ml field NS) 8:46:17 Versed I.V. 2 mg Ahmet Adhikariie for sedation Scottie Nicole RN 8:46:27 Fentanyl I.V. 100 mcg Ahmet Eastman for sedation Scottie Nicole RN 8:48:31 Radial Cocktail I.A. 1 Ahmethomar Leo for (Verapomil syringe Scottie Rubin MD vasodilation 2mg/Nitro 400mcg/Heparin 1500units) 8:49:18 Versed I.V. 2 mg Ahmet Buffie for sedation Scottie Nicole RN 8:49:28 Fentanyl I.V. 100 mcg Ahmet Buffie for sedation Scottie Nicole RN 8:52:19 Versed I.V. 2 mg Ahmet Buffie for sedation Scottie Nicole RN 8:52:29 Fentanyl I.V. 100 mcg Ahmet Adhikariie for sedation Scottie Nicole RN 8:55:19 Versed I.V. 2 mg Ahmet Buffie for sedation Scottie Nicole RN Procedure Log Time Note 8:12:01 Patient Height : 185 inches 8:12:06 Patient Weight : 97 lbs 8:12:46 Diagnostic Cath status Elective 8:12:48 Ivone Gaxiola RT(R) sent for patient. Start room use. 8:12:49 Time tracking: Regular hours (M-F 7:00 - 5:00) 8:12:55 Plan of Care:Hemodynamics will remain stable., Cardiac rhythm will remain stable., Comfort level will be maintained., Respiratory function will remain adequate., Patient/ family verbilizes understanding of procedure., Procedure tolerated without complication., Recovers from procedure without complications.. 8:13:50 Patient received from Med II to CCL 3 Alert and oriented. Tansferred to table in Supine position. 8:41:28 Warm blankets applied, and hossein hugger turned on for patient comfort. 8:41:28 Correct patient and procedure confirmed by team. 8:41:30 Signed procedure consent form obtained from patient. 8:41:30 ECG and BP/O2 sat monitors applied to patient. 8:41:31 Vital chart was started 8:41:32 Baseline sample Acquired. 8:41:36 Rhythm: sinus rhythm 8:41:37 Full Disclosure recording started 8:41:45 H&P Date Dictated: 10/10/2017 Within 30 days and on chart., H&P Addendum completed by physician on day of procedure. (MUST COMPLETE FOR ALL OUTPATIENTS). 8:41:46 Pre-procedure instructions explained to patient. 8:41:46 Pre-op teaching completed and patient verbalized understanding. 8:41:48 Family unavailable. 8:41:50 Patient NPO since Midnight. 8:41:52 Is the patient allergic to Iodine/contrast media? No. 8:41:53 Was the patient premedicated? No 8:41:55 Is patient on blood thinner?No 8:41:56 Patient diabetic? No. 8:41:58 Previous problem with sedation/anesthesia? No ? 8:42:00 Snore? Yes 8:42:01 Sleep apnea? No 8:42:02 Deviated septum? No 8:42:03 Opens mouth fully? Yes 8:42:03 Sticks out tongue? Yes 8:42:04 Lidocaine 2% 20ml vial added to field was administered by Ahmet Rubin MD; for local anesthetic; 8:42:05 Airway obstruction? No ? 8:42:07 Dentures? No ? 8:42:11 Pre procedure: right dorsailis pedis pulse 1+ Palpable, but thready & weak; easily obliterated 8:42:16 Pre procedure: left dorsailis pedis pulse 1+ Palpable, but thready & weak; easily obliterated 8:42:19 Patient pain scale 0/10 ?. 8:42:29 IV patent on arrival in right wrist with 0.9% NaCl at KVO. 8:42:32 Lab results completed and on chart. 8:42:56 Oxygen 2 l/min NC was administered by Raiza Nicole RN; used for procedure; 8:43: 0.9% NaCl 100 ml/hr I.V. was administered by Raiza Nicole RN; Per physician; 8:43:22 Right Radial & Right Groin area was prepped with chlora-prep and draped in sterile fashion 8:43: Alarms reviewed by R. N. 8:43: Sharps counted by scrub and verified by R.N. 8::53 Lab Result : BUN 20 mg/dl 8:: Lab Result : Hemoglobin 14.3 g/dl 8::53 Lab Result : Creatinine 1 mg/dl 8:43:55 Heparin Flush Bag (1000units/500ml NS) 2 bags added to field was administered by Raiza Nicole RN; used for procedure; 8:45:56 Physician arrived 8:45:57 --------ALL STOP TIME OUT------ 8:45:57 Final Timeout: patient, procedure, and site verified with staff and physician. All members of the team are in agreement. 8:46:00 Right Radial & Right Groin site verified by team. 8:46:03 Physical assessment completed. ASA score P 2 - A patient with mild systemic disease as per Ahmet Rubin MD. 8:46:07 Sedation plan: IV Moderate Sedation Medication:Versed, Fentanyl 8:46:17 Versed 2 mg I.V. was administered by Raiza Nicole RN; for sedation; 8:46:19 Use device set Radial Dx or PCI 8:46:20 ACIST Syringe (03406) opened to sterile field. 8:46:20 Medline Cath Pack ([id number]) opened to sterile field. 8:46:21 Bag Decanter (2002) opened to sterile field. 8:46:21 DIAGNOSTIC WIRE .035 260cm J wire (978156) opened to sterile field. 8:46:22 ACIST Hand Control (64899) opened to sterile field. 8:46:22 ACIST Manifold (97794) opened to sterile field. 8:46:23 Tegaderm 4 x 4 (1626W) opened to sterile field. 8:46:23 MBrace Wrist Support ([id number]) opened to sterile field. 8:46:24 SHEATH 6Fr Prelude Radial ([id number]) opened to sterile field. 8:46:27 Fentanyl 100 mcg I.V. was administered by Raiza Nicole RN; for sedation; 8:48:31 Radial Cocktail (Verapomil 2mg/Nitro 400mcg/Heparin 1500units) 1 syringe I.A. was administered by Ahmet Rubin MD; for vasodilation; 8:49:18 Versed 2 mg I.V. was administered by Raiza Nicole RN; for sedation; 8:49:28 Fentanyl 100 mcg I.V. was administered by Raiza Nicole RN; for sedation; 8:52:19 Versed 2 mg I.V. was administered by Raiza Nicole RN; for sedation; 8:52:29 Fentanyl 100 mcg I.V. was administered by Raiza Nicole RN; for sedation; 8:52:46 Procedure started. 8:53:18 Local anesthetic to right radial artery with Lidocaine 2% by Ahmet Rubin MD.INITIAL ACCESS ONLY 8:53:26 A 6 Fr Short sheath was inserted into the Right Radial artery 8:54:21 A DIAGNOSTIC [place] 110cm 5 Fr catheter (736205) was advanced over the wire and used for Multi-vessel Angiography. 8:54:48 LV hemodynamics recorded. 8:54:49 LV gram done using CASE 8:54:52 Injector settings: Ml/sec: 5, Volume: 15, 8:54:57 EF : 60 % 8:55:17 LCA angiography performed. 8:55:19 Versed 2 mg I.V. was administered by Raiza Nicole RN; for sedation; 8:55:20 Injector settings: Ml/sec: 3, Volume: 6, 8:55:57 RCA angiography performed. 8:56:01 Injector settings: Ml/sec: 3, Volume: 6, 8:56:32 Catheter removed. 8:57:22 A DIAGNOSTIC AR 2 MOD 5 Fr catheter (600109G) was advanced over the wire and used for Right Coronary Angiography. 8:57:35 RCA angiography performed. 8:58:02 TR BAND Standard ([id number]) opened to sterile field. 8:58:16 Sheath removed intact; hemostasis achieved with Mechanical Compression to the Right Radial artery. 8:58:18 Procedure ended.(Physican Out) 8:58:36 Fluoroscopy time 01.00 minutes. 8:58:50 Fluoroscopy dose: 137.93 mGy 8:58:50 Flurop Dose total: 137.93 8:58:54 Contrast amount:Isovue 300 35ml. 8:58:55 Sharps counted by scrub and verified by R.N. 8:58:59 TR band inflated with 10cc of air. 8:59:00 Insertion/operative site no bleeding no hematoma. 8:59:06 Post right radial artery:stable 8:59:08 Post Procedure Pulses reassessed and unchanged 8:59:11 Post procedure rhythm: unchanged. 8:59:13 Estimated blood loss: 5 ml 8:59:14 Post procedure instruction explained to patient.Patient verbalizes understanding. 8:59:15 Patient needs reinforcement of post procedure teaching. 8:59:26 Procedure and supply charges have been captured, reviewed, submitted and are correct. 8:59:30 Procedure Complication : No complications 8:59:33 Vital chart was stopped 8:59:33 See physician's report for complete and final results. 8:59:36 Report given to [facility]. 8:59:40 Patient transfered to [facility] with Stretcher. 8:59:42 Procedure ended. 8:59:42 Full Disclosure recording stopped 8:59:47 End room use (Document Last) Device Usage Item Name Manufacture Quantity Catalog Number Hospital Part Current M inimal Lot# / Charge Number Stock Stock Serial# Code ACIST Syringe Acist 1 74671 339966 978350 726438 2 0 (33835) [employer] Medline Cath Cardinal 1 [id number] 892356 48275 489896 5 Pack [facility] ([id number]) Bag Decanter Microtek 1 041071 40167 621570 5 () Medical Inc. DIAGNOSTIC WIRE [place] 1 333369 187567 235669 172547 3 0 .035 260cm J wire (771782) ACIST Hand Acist 1 23622 839323 270001 683804 5 Control (06137) [employer] Inc ACIST Manifold Acist 1 07805 864938 180781 309368 5 (16408) [employer] Inc Tegaderm 4 x 4 3M 1 1626W 841843 471388 953843 5 (1626W) MBrace Wrist Advanced 1 140-0250-00 890568 09411 512695 5 Support Vascular ([id number]) Dynamics SHEATH 6Fr Merit 1 [id number] 059485 647942 138822 5 Prelude Radial Medical ([id number]) DIAGNOSTIC Terumo 1 40-5799 237819 830311 941725 5 [place] 110cm 5 Fr catheter (340136) DIAGNOSTIC AR 2 Cardinal 1 [id number] 200903 775821 102683 2 0 MOD 5 Fr Health catheter (057322K) TR BAND Terumo 1 QIT65- 458478 982928 4 0 Standard ([id number]) Signature Audit [place] Stage Time Signature Unsigned Intra-Procedure 10/10/2017 Ivone Gaxiola 9:05:17 AM RT(R) Signatures Monitor : Ivone Gaxiola RT Signature : Date : Time : [place] [id number] [place] [address]
[2017-10-08 17:57] LABS: BASOPHILS 0.5 % (0-2); EOSINOPHILS 0.6 % (0-7); HEMATOCRIT 43.2 % (42.0-54.0); HEMOGLOBIN 14.7 g/dL (13.5-17.5); IMMATURE GRANULOCYTES 0.3 % (0-5); LYMPHOCYTES 29.2 % (15-50); MCH 30.8 pg (26.0-34.0); MCV 90.4 fL (80.0-100.0); MEAN PLATELET VOLUME 9.2 fL (7.4-10.4); MONOCYTES 8.5 % (2-11); NEUTROPHILS 60.9 % (40-80); PLATELET COUNT 271 10x3/uL (130-400); RBC 4.78 10x6/uL (4.20-6.10); RDW 15.1 % (11.5-14.5); WBC 8.6 10x3/uL (4.8-10.8)
[2017-10-08 18:10] LABS: ALBUMIN 3.8 g/dL (3.4-5.0); ALKALINE PHOSPHATASE 47 U/L (46-116); ALT (SGPT) 40 U/L (10-68); CALC OSMOLALITY 282 mosm/kg (275-300); CALCIUM 9.4 mg/dL (8.5-10.1); CARBON DIOXIDE 24.8 mmol/L (21.0-32.0); CHLORIDE - SERUM 106 mmol/L (98-107); CREATININE - SERUM 1.1 mg/dL (0.6-1.3); GLUCOSE 103 mg/dL (74-106); POTASSIUM - SERUM 4.3 mmol/L (3.5-5.1); PROTEIN - SERUM 7.3 g/dL (6.4-8.2); SODIUM 140 mmol/L (136-145); UREA NITROGEN 24 mg/dL (7-18); eGFR NON AFRICAN AMERICAN 78 mL/min (90-120)
[2017-10-08 18:22] LABS: CKMB 0.7 U/L (0.0-3.6); CREATINE KINASE 73 UL (21-232); TROPONIN-I < 0.017 ng/mL (0.000-0.060)
[2017-10-08] MEDS ORDERED: HYDROCODONE-APA1 TAB PO (22:12)
[2017-10-08] MEDS ORDERED: DIOVAN80 MG PO (22:13)
[2017-10-08] MEDS ORDERED: TOPROL XL50 MG PO (22:14)
[2017-10-08] MEDS ORDERED: CRESTOR40 MG PO (22:15)
[2017-10-08] MEDS ORDERED: BACLOFEN20 M1 PO (22:16)
[2017-10-09] VITALS (7 sets, daily range): BP systolic 108–141; BP diastolic 62–80; Ht 185.4 cm; Wt 97.0 kg
[2017-10-09 11:09] LABS: BASOPHILS 0.3 % (0-2); EOSINOPHILS 0.8 % (0-7); HEMATOCRIT 42.8 % (42.0-54.0); HEMOGLOBIN 14.3 g/dL (13.5-17.5); IMMATURE GRANULOCYTES 0.2 % (0-5); MCH 30.2 pg (26.0-34.0); MCHC 33.4 g/dL (31.0-37.0); MCV 90.3 fL (80.0-100.0); MONOCYTES 6.9 % (2-11); NEUTROPHILS 54.8 % (40-80); PLATELET COUNT 244 10x3/uL (130-400); RBC 4.74 10x6/uL (4.20-6.10); RDW 15.1 % (11.5-14.5); WBC 6.5 10x3/uL (4.8-10.8)
[2017-10-09 11:17] LABS: CALC OSMOLALITY 283 mosm/kg (275-300); CALCIUM 9.1 mg/dL (8.5-10.1); CARBON DIOXIDE 26.3 mmol/L (21.0-32.0); CHLORIDE - SERUM 105 mmol/L (98-107); GLUCOSE 146 mg/dL (74-106); POTASSIUM - SERUM 4.6 mmol/L (3.5-5.1); SODIUM 139 mmol/L (136-145); UREA NITROGEN 20 mg/dL (7-18); eGFR NON AFRICAN AMERICAN 87 mL/min (90-120)
[2017-10-10 01:06] VITALS: BP 128/60
[2017-10-10 06:12] VITALS: BP 111/75
== END 2017-10-10 11:10 | disposition left against medical advice (07) ==
LOC: D.ER 17:06 → OBSVTIME 20:42 → D.M2 20:42
PROVIDERS: Emergency Medicine; Internal Medicine Interventional Cardiology
DX: R07.89 Other chest pain (principal); K21.9 Gastro-esophageal reflux disease without esophagitis; I10 Essential (primary) hypertension; E78.5 Hyperlipidemia, unspecified; G89.29 Other chronic pain; M54.9 Dorsalgia, unspecified; F32.9 Major depressive disorder, single episode, unspecified; E03.9 Hypothyroidism, unspecified

== ENCOUNTER → 2017-10-17 08:24 | Outpatient (CLI) | payer MEDICAID ==
[2017-10-09 01:11] VITALS: BMI 30.4
[~2017-10-17 08:24] MED LIST changes: +BACLOFEN20 M1 PO; +CRESTOR40 MG PO; +DIOVAN80 MG PO; +TOPROL XL50 MG PO
== END | disposition home or self-care (01) ==
LOC: D.MRI 08:24
DX: M54.5 Low back pain (principal)

== ENCOUNTER 2017-10-28 14:47 | Emergency (ER) | payer MEDICAID ==
[2017-10-09 01:11] VITALS: BMI 30.4
[2017-10-28 15:56] LABS: BASOPHILS 0.3 % (0-2); EOSINOPHILS 0.3 % (0-7); HEMATOCRIT 43.9 % (42.0-54.0); HEMOGLOBIN 14.9 g/dL (13.5-17.5); IMMATURE GRANULOCYTES 0.2 % (0-5); LYMPHOCYTES 28.2 % (15-50); MCH 30.8 pg (26.0-34.0); MCHC 33.9 g/dL (31.0-37.0); MCV 90.9 fL (80.0-100.0); MONOCYTES 7.9 % (2-11); NEUTROPHILS 63.1 % (40-80); PLATELET COUNT 230 10x3/uL (130-400); RBC 4.83 10x6/uL (4.20-6.10); RDW 15.1 % (11.5-14.5); WBC 6.5 10x3/uL (4.8-10.8)
[2017-10-28 16:10] LABS: ALBUMIN 3.9 g/dL (3.4-5.0); ALKALINE PHOSPHATASE 37 U/L (46-116); ALT (SGPT) 34 U/L (10-68); BILIRUBIN - TOTAL 0.26 mg/dL (0.2-1.3); CALC OSMOLALITY 287 mosm/kg (275-300); CARBON DIOXIDE 26.8 mmol/L (21.0-32.0); CHLORIDE - SERUM 108 mmol/L (98-107); GLUCOSE 111 mg/dL (74-106); PROTEIN - SERUM 7.4 g/dL (6.4-8.2); SODIUM 144 mmol/L (136-145); UREA NITROGEN 12 mg/dL (7-18); eGFR NON AFRICAN AMERICAN 87 mL/min (90-120)
== END 2017-10-28 17:54 | disposition home or self-care (01) ==
LOC: D.ER 14:47
PROVIDERS: Family Medicine
DX: M54.5 Low back pain (principal); M47.9 Spondylosis, unspecified; I10 Essential (primary) hypertension; E03.9 Hypothyroidism, unspecified; F17.200 Nicotine dependence, unspecified, uncomplicated

== ENCOUNTER 2018-01-06 11:54 | Emergency (ER) | payer MEDICAID ==
[~2018-01-06] VITALS: Ht 185.4 cm; Wt 100.0 kg
[2018-01-06 12:26] VITALS: Ht 185.4 cm; Wt 100.0 kg
[2018-01-06] MEDS ORDERED: PERCOCET 10/3251 TA1 PO (12:30)
[2018-01-06] MEDS ORDERED: KLONOPIN1 MG PO (12:31)
[2018-01-06 13:41] LABS: BASOPHILS 0.4 % (0-2); HEMATOCRIT 33.7 % (42.0-54.0); HEMOGLOBIN 11.1 g/dL (13.5-17.5); IMMATURE GRANULOCYTES 0.9 % (0-5); LYMPHOCYTES 21.5 % (15-50); MCHC 32.9 g/dL (31.0-37.0); MCV 91.1 fL (80.0-100.0); MONOCYTES 9.8 % (2-11); NEUTROPHILS 65.4 % (40-80); RDW 14.2 % (11.5-14.5); WBC 9.3 10x3/uL (4.8-10.8)
[2018-01-06 13:48] LABS: PLATELET COUNT 509 10x3/uL (130-400)
[2018-01-06 13:51] LABS: ALBUMIN 2.7 g/dL (3.4-5.0); ALKALINE PHOSPHATASE 76 U/L (46-116); ALT (SGPT) 25 U/L (10-68); BILIRUBIN - TOTAL 0.12 mg/dL (0.2-1.3); CALC OSMOLALITY 276 mosm/kg (275-300); CALCIUM 9.1 mg/dL (8.5-10.1); CARBON DIOXIDE 26.4 mmol/L (21.0-32.0); CHLORIDE - SERUM 103 mmol/L (98-107); GLUCOSE 89 mg/dL (74-106); POTASSIUM - SERUM 3.9 mmol/L (3.5-5.1); PROTEIN - SERUM 7.1 g/dL (6.4-8.2); SODIUM 140 mmol/L (136-145); UREA NITROGEN 10 mg/dL (7-18); eGFR NON AFRICAN AMERICAN 86 mL/min (90-120)
[2018-01-06] MEDS ORDERED: CLEOCIN HCL150 MG PO (16:54)
[2018-01-06] MEDS ORDERED: NORCO 7.5/325 T1 TA1 PO (16:54)
[2018-01-06 17:12] VITALS: BP 135/79
== END 2018-01-06 17:12 | disposition home or self-care (01) ==
LOC: D.ER 11:54
PROVIDERS: Family Medicine
DX: M54.5 Low back pain (principal); L76.82 Other postprocedural complications of skin and subcutaneous tissue; E07.9 Disorder of thyroid, unspecified; I10 Essential (primary) hypertension; F17.200 Nicotine dependence, unspecified, uncomplicated

== ENCOUNTER 2018-01-26 09:45 | Emergency (ER) | payer MEDICAID ==
[~2018-01-26] VITALS: Ht 185.4 cm; Wt 97.7 kg
[~2018-01-26 09:45] MED LIST changes: +CLEOCIN HCL150 MG PO; +KLONOPIN1 MG PO; +NORCO 7.5/325 T1 TA1 PO
[2018-01-26 09:48] VITALS: BP 137/97; Ht 185.4 cm; Wt 97.7 kg
[2018-01-26 10:33] LABS: BASOPHILS 0.1 % (0-2); EOSINOPHILS 0.1 % (0-7); HEMATOCRIT 38.4 % (42.0-54.0); HEMOGLOBIN 12.8 g/dL (13.5-17.5); IMMATURE GRANULOCYTES 0.2 % (0-5); LYMPHOCYTES 14.3 % (15-50); MCH 29.6 pg (26.0-34.0); MCHC 33.3 g/dL (31.0-37.0); MCV 88.9 fL (80.0-100.0); MEAN PLATELET VOLUME 9.4 fL (7.4-10.4); MONOCYTES 8.7 % (2-11); NEUTROPHILS 76.6 % (40-80); PLATELET COUNT 422 10x3/uL (130-400); RBC 4.32 10x6/uL (4.20-6.10); RDW 13.7 % (11.5-14.5); WBC 14.6 10x3/uL (4.8-10.8)
[2018-01-26 10:35] LABS: APPEARANCE CLEAR (CLEAR); BILIRUBIN NEGATIVE (NEGATIVE); COLOR YELLOW (YELLOW); GLUCOSE 100 mg/dL (NEGATIVE); KETONE NEGATIVE (NEGATIVE); NITRITE NEGATIVE (NEGATIVE); PROTEIN NEGATIVE (NEGATIVE); SPECIFIC GRAVITY 1.015 (1.005-1.020)
[2018-01-26 11:06] LABS: ALBUMIN 3.5 g/dL (3.4-5.0); ALKALINE PHOSPHATASE 82 U/L (46-116); ALT (SGPT) 23 U/L (10-68); BILIRUBIN - TOTAL 0.26 mg/dL (0.2-1.3); CALC OSMOLALITY 278 mosm/kg (275-300); CALCIUM 9.2 mg/dL (8.5-10.1); CARBON DIOXIDE 21.5 mmol/L (21.0-32.0); CHLORIDE - SERUM 104 mmol/L (98-107); CREATININE - SERUM 1.1 mg/dL (0.6-1.3); GLUCOSE 102 mg/dL (74-106); POTASSIUM - SERUM 4.1 mmol/L (3.5-5.1); PROTEIN - SERUM 7.9 g/dL (6.4-8.2); SODIUM 138 mmol/L (136-145); UREA NITROGEN 20 mg/dL (7-18); eGFR NON AFRICAN AMERICAN 77 mL/min (90-120)
[2018-01-26] MEDS ORDERED: VANCOMYCIN HCL125 MG PO (14:39)
== END 2018-01-26 15:27 | disposition home or self-care (01) ==
LOC: D.ER 09:45
PROVIDERS: Family Medicine
DX: Z98.890 Other specified postprocedural states (principal); R19.7 Diarrhea, unspecified; R63.4 Abnormal weight loss; R11.10 Vomiting, unspecified; E07.9 Disorder of thyroid, unspecified; I10 Essential (primary) hypertension; F17.200 Nicotine dependence, unspecified, uncomplicated

== ENCOUNTER 2018-02-11 10:55 | Emergency (ER) | payer MEDICAID ==
[~2018-02-11] VITALS: Ht 185.4 cm; Wt 91.8 kg
[~2018-02-11 10:55] MED LIST changes: +VANCOMYCIN HCL125 MG PO
[2018-02-11 11:06] VITALS: Ht 185.4 cm; Wt 91.8 kg
[2018-02-11 11:34] LABS: BASOPHILS 0.8 % (0-2); EOSINOPHILS 1.7 % (0-7); HEMATOCRIT 39.3 % (42.0-54.0); HEMOGLOBIN 13.1 g/dL (13.5-17.5); IMMATURE GRANULOCYTES 0.3 % (0-5); LYMPHOCYTES 32.8 % (15-50); MCH 28.5 pg (26.0-34.0); MCHC 33.3 g/dL (31.0-37.0); MCV 85.4 fL (80.0-100.0); MEAN PLATELET VOLUME 9.3 fL (7.4-10.4); MONOCYTES 9.2 % (2-11); NEUTROPHILS 55.2 % (40-80); PLATELET COUNT 454 10x3/uL (130-400); RDW 14.1 % (11.5-14.5); WBC 7.7 10x3/uL (4.8-10.8)
[2018-02-11 11:43] LABS: ALBUMIN 3.3 g/dL (3.4-5.0); ALKALINE PHOSPHATASE 86 U/L (46-116); ALT (SGPT) 45 U/L (10-68); CALC OSMOLALITY 273 mosm/kg (275-300); CALCIUM 9.6 mg/dL (8.5-10.1); CARBON DIOXIDE 23.6 mmol/L (21.0-32.0); CHLORIDE - SERUM 102 mmol/L (98-107); CREATININE - SERUM 0.9 mg/dL (0.6-1.3); GLUCOSE 107 mg/dL (74-106); PROTEIN - SERUM 8.5 g/dL (6.4-8.2); SODIUM 137 mmol/L (136-145); UREA NITROGEN 12 mg/dL (7-18); eGFR NON AFRICAN AMERICAN > 90 mL/min (90-120)
[2018-02-11 13:28] VITALS: BP 134/88
== END 2018-02-11 13:21 | disposition home or self-care (01) ==
LOC: D.ER 10:55
PROVIDERS: Family Medicine
DX: G89.18 Other acute postprocedural pain (principal); I10 Essential (primary) hypertension

== ENCOUNTER 2019-05-18 12:44 | Observation (INO) | payer MEDICAID ==
[~2019-05-18] VITALS: Ht 185.4 cm; Wt 102.3 kg
[~2019-05-18 12:44] MED LIST changes: +TOPROL XL100 MG PO; -TOPROL XL50 MG PO
[2019-05-18 13:29] VITALS: BP 131/86
[2019-05-18 13:55] LABS: BASOPHILS 0.7 % (0-2); EOSINOPHILS 7.8 % (0-7); HEMATOCRIT 47.3 % (42.0-54.0); HEMOGLOBIN 16.1 g/dL (13.5-17.5); IMMATURE GRANULOCYTES 0.1 % (0-5); LYMPHOCYTES 32.8 % (15-50); MCH 29.8 pg (26.0-34.0); MCV 87.6 fL (80.0-100.0); MEAN PLATELET VOLUME 10.2 fL (7.4-10.4); MONOCYTES 7.7 % (2-11); NEUTROPHILS 50.9 % (40-80); RDW 14.3 % (11.5-14.5); WBC 8.2 10x3/uL (4.8-10.8)
[2019-05-18 14:03] LABS: PLATELET COUNT 260 10x3/uL (130-400)
[2019-05-18 14:14] LABS: CALC OSMOLALITY 281 mosm/kg (275-300); CARBON DIOXIDE 21.4 mmol/L (21.0-32.0); CHLORIDE - SERUM 107 mmol/L (98-107); GLUCOSE 100 mg/dL (74-106); POTASSIUM - SERUM 4.4 mmol/L (3.5-5.1); SODIUM 141 mmol/L (136-145); UREA NITROGEN 16 mg/dL (7-18); eGFR NON AFRICAN AMERICAN 86 mL/min (90-120)
[2019-05-18 14:18] LABS: APTT 28.4 SECONDS (22.8-39.4); INR 0.9 (0.85-1.17); PROTIME 11.7 SECONDS (11.6-15.0)
[2019-05-18 14:19] LABS: D-DIMER-QUANTITATIVE 0.31 ug/mLFEU (0.20-0.54)
[2019-05-18 14:25] LABS: ALBUMIN 4.1 g/dL (3.4-5.0); ALKALINE PHOSPHATASE 85 U/L (46-116); ALT (SGPT) 41 U/L (10-68); BILIRUBIN - TOTAL 0.39 mg/dL (0.2-1.3); CKMB 0.6 U/L (0.0-3.6); CREATINE KINASE 115 UL (21-232); MAGNESIUM - SERUM 1.9 mg/dL (1.8-2.4); PROTEIN - SERUM 7.2 g/dL (6.4-8.2); TROPONIN-I < 0.017 ng/mL (0.000-0.060)
[2019-05-18 14:44] VITALS: BP 132/84
--- NOTE | 2019-05-18 17:09 | NUR ---
TRANSFER FROM ER BY W/C. ASHIAINTED TO ROOM. CALL LIGHT IN REACH. WILL CONT. PLAN OF CARE.
[2019-05-18] MEDS ORDERED: HYDROCODON-ACE1 EA10 PO (17:12)
[2019-05-18 17:18] VITALS: BP 132/84; Ht 185.4 cm; Wt 102.3 kg
[2019-05-18 17:32] VITALS: BP 115/50
--- NOTE | 2019-05-18 19:52 | NUR ---
RECEIVED REPORT, WILL ASSUME CARE OF PT, ASKING FOR A SANDWICH AND A DRINK, PROVIDED,DENIES ANY OTHER NEEDS AT THIS TIME, BED IS LOW,,SRX 2, CALL LIGHT IN REACH, WILL CONTINUE PLAN OF CARE
[2019-05-18 20:00] VITALS: BP 121/82
[2019-05-18 21:59] LABS: CKMB 0.7 U/L (0.0-3.6); CREATINE KINASE 105 UL (21-232)
[2019-05-18 22:00] LABS: TROPONIN-I < 0.017 ng/mL (0.000-0.060)
[2019-05-19 00:30] VITALS: BP 126/78
--- NOTE | 2019-05-19 02:18 | NUR ---
I have reviewed this patient and I concur with the Shift Assessment completed by the Licensed Practical Nurse today this shift.
[2019-05-19 04:00] VITALS: BP 116/72
[2019-05-19 04:16] LABS: BASOPHILS 1.2 % (0-2); EOSINOPHILS 10.2 % (0-7); HEMATOCRIT 46.6 % (42.0-54.0); HEMOGLOBIN 15.5 g/dL (13.5-17.5); IMMATURE GRANULOCYTES 0.2 % (0-5); LYMPHOCYTES 41.4 % (15-50); MCH 29.7 pg (26.0-34.0); MCHC 33.3 g/dL (31.0-37.0); MCV 89.3 fL (80.0-100.0); MEAN PLATELET VOLUME 9.6 fL (7.4-10.4); MONOCYTES 8.8 % (2-11); NEUTROPHILS 38.2 % (40-80); PLATELET COUNT 231 10x3/uL (130-400); RBC 5.22 10x6/uL (4.20-6.10); RDW 14.4 % (11.5-14.5); WBC 6.6 10x3/uL (4.8-10.8)
[2019-05-19 04:49] LABS: ALBUMIN 3.8 g/dL (3.4-5.0); ALKALINE PHOSPHATASE 89 U/L (46-116); ALT (SGPT) 39 U/L (10-68); BILIRUBIN - TOTAL 0.41 mg/dL (0.2-1.3); CALC OSMOLALITY 285 mosm/kg (275-300); CALCIUM 8.7 mg/dL (8.5-10.1); CHLORIDE - SERUM 106 mmol/L (98-107); CKMB 0.5 U/L (0.0-3.6); CREATINE KINASE 89 UL (21-232); GLUCOSE 103 mg/dL (74-106); MAGNESIUM - SERUM 1.9 mg/dL (1.8-2.4); PHOSPHOROUS 5.8 mg/dL (2.5-4.9); POTASSIUM - SERUM 4.4 mmol/L (3.5-5.1); PROTEIN - SERUM 6.8 g/dL (6.4-8.2); SODIUM 142 mmol/L (136-145); THYROID STIMULATING HORMONE 7.24 uIU/mL (0.36-3.74); TROPONIN-I < 0.017 ng/mL (0.000-0.060); UREA NITROGEN 20 mg/dL (7-18)
[2019-05-19 04:56] LABS: CREATININE - SERUM 1.3 mg/dL (0.6-1.3)
[2019-05-19 04:57] LABS: CARBON DIOXIDE 29.4 mmol/L (21.0-32.0); eGFR NON AFRICAN AMERICAN 63 mL/min (90-120)
[2019-05-19 05:48] LABS: APPEARANCE CLEAR (CLEAR); BILIRUBIN NEGATIVE (NEGATIVE); COLOR YELLOW (YELLOW); GLUCOSE NEGATIVE (NEGATIVE); KETONE NEGATIVE (NEGATIVE); NITRITE NEGATIVE (NEGATIVE); PROTEIN NEGATIVE (NEGATIVE); SPECIFIC GRAVITY 1.015 (1.005-1.020); UROBILINOGEN NORMAL (NORMAL)
--- NOTE | 2019-05-19 07:15 | NUR ---
RECEIVED PT AMBULATING IN HALLWAY RESP UNLABORED SKIN W/D COLOR WNL DENIES ANY DISCOMFORT OR NEEDS AT THS TIME NAD NOTED
[2019-05-19 09:02] VITALS: BP 114/63
--- NOTE | 2019-05-19 13:25 | NUR ---
PT RETURNED FROM CTA VIA W/C IV ACCESS TO RFA RED AND SWOLLEN IV INFILTRATED FROM DYE ARM ELEVATED ON PILLOW AND WARM MOIST COMPRESS APPLIED PT C/O PAIN 02/13 TO RFA [place]CO 5/325 1 GIVEN PO FOR C/O PAIN. ASKED PT TO CALL WHEN COMPRESS GOT COOL SO IT CANBE REFRESHED
--- NOTE | 2019-05-19 18:00 | NUR ---
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
--- NOTE | 2019-05-22 13:07 | EC ---
PATIENT:MERON MARTINN DATE OF SERVICE: 05/18/19 SEX: M MEDICAL RECORD: [id number] DATE OF : 71 LOCATION:D. D.211 AGE OF PATIENT: 43 ADMISSION DATE: 05/18/19 REFERRING PHYSICIAN: INTERPRETING PHYSICIAN: DOMINIQUE OSEGUERA MD ECHOCARDIOGRAM REPORT ECHO CHARGES 4 ECHO COMPLETE Date: 05/19/19 CLINICAL DIAGNOSIS: ARRHYTHMIA ECHOCARDIOGRAPHIC MEASUREMENTS (adult normal given) AC root (d.<3.7cm) 3.4 cm LV Septum d (<1.2 cm> 1.3 cm Valve Excursion 1.6 cm LV Septum (systole) 1.7 cm Left Atria (s.<4.0cm> 3.3 cm LVPW d(<1.2cm) 1.9 cm RV (d.<2.3cm) 4.3 cm LVPW (sytole) 2.0 cm LV diastole(<5.6CM) 4.4 cm MV E-F(>70mm/sec) cm LV systole 3.2 cm LVOT Diameter 1.6 cm MV exc.(>10mm) 1.4 cm Est.ejection fraction (50-75%) % DOPPLER: LVIT cm/sec A 47.0 cm/sec E 91.0 cm/sec LA cm/sec RVSP 23 mmHg LVOT 88 cm/sec AOP1/2T m/s Asc. Ao 111 cm/sec RVOT 66 cm/sec RA cm/sec PA 106 cm/sec AV Gradient Peak 4.94 mmHg AV Mean 2.38 mmHg AV Area 1.9 cm MV Gradient Peak 5.12 mmHg MV Mean 1.70 mmHg MV Area cm COMMENTS: Underground Drill Operator: 2 ARJUN STRATTON Lab Associate: 3 Dr. Urbina TAPE# PACS Pericardial Effusion N DATE OF SERVICE: Adequate 2D echo, color flow, spectral Doppler, and M-mode. LVH is present. LV internal dimensions are normal. Wall motion is normal. EF is greater than or equal to 55%. Aortic valve is tricuspid. No evidence of stenosis by Doppler interrogation. Left atrium is normal. Mitral valve shows no prolapse. Trace to mild MR. Right-sided chambers are grossly normal. Trace TR. ECHOCARDIOGRAM REPORT [id number] MERON MARTIN GARCÍA TRANSINT:[id number] Voice Confirmation ID: [id number] DOCUMENT ID: [id number] DOMINIQUE OSEGUERA MD at 1307 CC: [id number] DICTATION DATE: 05/20/19 103 ENGRAVER COPPERPLATE: 05/20/192201 DIS IN 05/19/[address] [facility] [address] [place] [id number]
--- NOTE | 2019-05-22 13:07 | CN ---
PATIENT NAME:MERON MARTIN MEDICAL RECORD: [id number] : 71 LOCATION:D. D.2115 ADMIT DATE: 05/18/19 ACCOUNT: [id number] CONSULTING PHYSICIAN: DOMINIQUE OSEGUERA MD REFERRING PHYSICIAN: SELINA ANDRADE MD DATE OF CONSULTATION: 05/18/2019 HISTORY OF PRESENT ILLNESS: A 43-year-old gentleman with longstanding history of intermittent chest pain, underwent diagnostic angiography back in October 2017. Entirely normal. He has been having intermittent chest pain. Over the past, probably might just accompanied by headache, perhaps intermittent tachycardia. He reports headache, pain radiating to the back of his shoulder blades. We are seeing him concerning his cardiovascular status. PAST MEDICAL HISTORY: Includes: 1. History of hypothyroidism replacement. 2. Hypertension. 3. Dyslipidemia. 4. Cervical fusion. MEDICATIONS AT HOME: Typically include Valsartan 80 mg p.o. day, metoprolol 100 mg p.o. daily, Crestor 40 mg p.o. daily, Remeron 30 mg at bedtime, [place] 10/325 one p.o. every 4 hours p.r.n., Synthroid 50 mcg every day, and vancomycin 125 p.o. q.6 hours. SOCIAL HISTORY: Smokes less than a pack a day. No illicit drug use. No set exercise program. ALLERGIES: None known. REVIEW OF SYSTEMS: The patient reports easy bruising but reports no swollen glands. The patient reports no fever, no night sweats, no significant weight gain, no significant weight loss. No significant exercise tolerance. The patient reports no dry eyes, no irritation, no vision change. Patient reports no difficulty hearing and no ear pain. Patient reports no frequent nose bleeds or nose and sinus problems. Patient reports on arm pain on exertion. No shortness of breath while lying down. No history of heart murmur. Patient reports no cough, no wheezing or coughing up blood. Patient reports no abdominal pain, no vomiting. Normal appetite. No diarrhea and not vomiting blood. No nausea and no constipation. Patient reports no incontinence. No difficulty urinating. No hematuria. No increased frequency. Patient reports no muscle aches. No weakness, no arthralgias, no back pain. No swelling of the extremities. Patient reports no abnormal mole, no jaundice, no rashes. Reports no loss of consciousness. No weakness and no numbness. No seizures, dizziness, or headaches. The patient reports no depression, no sleep disturbance, feeling safe in a relationship and no alcohol abuse. Patient reports on fatigue. Reports no runny nose or sinus pressure. No itching, no hives, and no frequent sneezing. PHYSICAL EXAMINATION: GENERAL: Middle-aged gentleman in no acute distress. VITAL SIGNS: 115/50, pulse 57. HEENT: Normocephalic, atraumatic. NECK: No bruits noted. HEART: Regular. No gallops are noted. No murmurs noted. CONSULT REPORT [id number] MERON MARTIN LUNGS: Good air excursion. ABDOMEN: Soft, nontender. EXTREMITIES: Pulses 2+ with no edema. DIAGNOSTIC DATA: ECG without acute change. IMPRESSION: Chest pain. Given entirely normal catheterization approximately 15 months ago, doubt tachycardic etiology, some symptomatology could be arrhythmogenic. We will check echocardiographic study. Continuous telemetry, could consider outpatient event monitor. Further elucidate a cause of palpitation. TRANSINT:[id number] Voice Confirmation ID: [id number] DOCUMENT ID: [id number] DOMINIQUE OSEGUERA MD at 1307 CC: [id number] DICTATION DATE: 05/18/192131 VIRTUAL RECRUITER: 05/19/19 0425 DIS IN 05/19/[address] [facility] [address] [place] [address]
== END 2019-05-19 18:00 | disposition left against medical advice (07) ==
LOC: D.ER 12:44 → OBSVTIME 15:30 → D.M2 15:30
PROVIDERS: Family Medicine; ADMIT Emergency Medicine; ATTEND Emergency Medicine
DX: R07.9 Chest pain, unspecified (principal); E03.9 Hypothyroidism, unspecified; E78.5 Hyperlipidemia, unspecified; G89.29 Other chronic pain; F41.8 Other specified anxiety disorders; R00.1 Bradycardia, unspecified